=== PATIENT | male | born 1955 | race Caucasian/White ===

== ENCOUNTER → 2017-09-14 12:50 | Outpatient (CLI) | payer BC, SELFPAY ==
[2017-09-14 14:12] LABS: ALB/GLOB Ratio 1.4 RATIO (0.9-2.4); AST(SGOT) 28 U/L (15-37); Alanine Aminotransfer ALT/SGPT 58 U/L (12-78); Albumin, Serum 4.2 g/dL (3.4-5.0); Alkaline Phosphatase 77 U/L (45-117); Anion Gap 7 (5-15); BUN 15 mg/dL (7-18); BUN/Creat Ratio 15.8 RATIO (10-20); Calcium,Total 8.9 mg/dL (8.5-10.1); Chloride 105 mmol/L (98-107); Cholesterol 134 mg/dL (200); Creatinine, Serum 0.95 mg/dL (0.70-1.30); EST Glomerular Filtration Rate 85 mL/min (>60); Est Glom Filt Rate - Afr Amer 103 mL/min (>60); Globulin 3.1 g/dL (2.2-4.2); Glucose 88 mg/dL (70-110); High Density Lipoprotein 34 mg/dL; PSA,Total - Annual Screen 1.57 ng/mL (0.00-4.00); Potassium 4.1 mmol/L (3.5-5.1); Protein, Total 7.3 g/dL (6.4-8.2); Sodium Level 141 mmol/L (136-145); Thyroid Stim Hormone (TSH) 0.75 uIU/mL (0.358-3.74); Triglycerides 191 mg/dL; Very Low Density Lipoprotein 38 mg/dL (5-40)
[2017-09-14 14:13] LABS: Hemoglobin A1c 7.3 % (4.2-6.3)
[2017-09-14 14:15] LABS: T3 Total - Triiodothyronine 1.12 ng/mL (0.6-1.81)
[2017-09-15 13:17] LABS: T4 Free Direct 0.76 ng/dL (0.76-1.46)
== END ==
PROVIDERS: Family Provider Family Medicine; PCP Family Medicine; Visit Provider Family Medicine
DX: E11.9 Type 2 diabetes mellitus without complications (principal); E78.5 Hyperlipidemia, unspecified; E04.9 Nontoxic goiter, unspecified; Z12.5 Encounter for screening for malignant neoplasm of prostate
CPT/HCPCS: 36415; 80053; 80061; 83036; 84153; 84436; 84439; 84443; 84480; G0103

== ENCOUNTER → 2019-09-30 | Outpatient (CLI) | payer BC, SELFPAY ==
[2018-01-20 08:22] VITALS: BMI 37.0
[2019-09-30 12:10] LABS: Absolute Lymphocyte Count 2.31 X10^3/uL (0.83-4.51); Absolute Neutrophil Count 3.1 X10^3/uL (2.0-7.7); Basophil# 0.04 X10^3/uL; Basophil% 0.7 % (0-1); Eosinophil# 0.22 X10^3/uL; Eosinophils% 3.6 % (0-5); Hematocrit 43.9 % (40-54); Hemoglobin 14.1 g/dL (13.0-16.5); Lymphocyte # 2.31 X10^3/ul (4.0); Lymphocyte % 37.6 % (19-41); Mean Corp Hgb Conc 32.1 g/dL (32-36); Mean Corpuscular Hgb 28.3 pg (27.0-32.0); Mean Platelet Vol. 10.2 fl (6.2-12.0); Monocyte# 0.49 X10^3/uL; NRBC Flagged by Analyzer 0 % (0-5); Neutrophil # 3.05 X10^3/uL (2.7-7.7); Neutrophil % 49.4 % (47-70); Platelet Count 224 K/mm3 (150-450); RBC Distribution Width CV 13.3 % (11.6-14.6); RBC Distribution Width SD 43.1 fl (35.1-43.9); Red Blood Count 4.99 M/mm3 (4.6-6.2); White Blood Count 6.2 K/mm3 (4.4-11.0)
[2019-09-30 12:27] LABS: Hemoglobin A1c 7.7 % (4.2-6.3)
[2019-09-30 12:31] LABS: Microalbumin,Random Urine 10.2 mg/L (NO RANGE EST.); Microalbumin:Creatinine Ratio 11.7 mg/g CRE (<30 mg/g CRE)
[2019-09-30 12:32] LABS: ALB/GLOB Ratio 1.2 RATIO (0.9-2.4); AST(SGOT) 24 U/L (15-37); Alanine Aminotransfer ALT/SGPT 49 U/L (16-61); Albumin, Serum 3.9 g/dL (3.2-5.0); Alkaline Phosphatase 69 U/L (45-117); Anion Gap 3 (5-15); BUN 24 mg/dL (7-18); BUN/Creat Ratio 22.6 RATIO (10-20); Calcium,Total 8.7 mg/dL (8.5-10.1); Chloride 105 mmol/L (98-107); Cholesterol 149 mg/dL (200); Creatinine, Serum 1.06 mg/dL (0.70-1.30); EST Glomerular Filtration Rate 75 mL/min (>60); Est Glom Filt Rate - Afr Amer 90 mL/min (>60); Globulin 3.2 g/dL (2.2-4.2); Glucose 116 mg/dL (74-106); High Density Lipoprotein 34 mg/dL; PSA,Total - Annual Screen 2.26 ng/mL (0.00-4.00); Potassium 4.2 mmol/L (3.5-5.1); Protein, Total 7.1 g/dL (6.4-8.2); Sodium Level 138 mmol/L (136-145); Triglycerides 187 mg/dL; Very Low Density Lipoprotein 37 mg/dL (5-40)
== END | disposition home or self-care (01) ==
LOC: LAB 10:49
PROVIDERS: PCP Family Medicine; Referring Provider Family Medicine; Visit Provider Family Medicine
DX: E11.9 Type 2 diabetes mellitus without complications (principal); E78.5 Hyperlipidemia, unspecified; I10 Essential (primary) hypertension; Z12.5 Encounter for screening for malignant neoplasm of prostate
CPT/HCPCS: 36415; 80053; 80061; 82043; 82570; 83036; 84153; 85025; G0103

== ENCOUNTER 2019-10-27 09:05 | Day surgery (SDC) | payer BC, SELFPAY ==
[2019-10-27] VITALS (7 sets, daily range): BP systolic 130–150; BP diastolic 65–91; PULSE 67–74; RESP 16; TEMP 36.4–36.9; O2SAT 93–98; BMI 38.4
[2019-10-27 09:36] LABS: Bedside Glucose 113 mg/dL (70-110)
[2019-10-27] MEDS: Lactated Ringers 1,000 ML 100 ML IV (09:38)
--- NOTE | 2019-10-27 10:23 | H&P.OPEN ---
History of Present Illness Date of Admission: 10/27/19 The patient is a 64 year old M colonoscopy secondary to family history of colon cancer. Past Medical/Surgical History - Planned Operation Planned Operative Procedure/s: cscope open access Date of Operative Procedure: 10/27/19 Permit Signed: No S.O.S: No Is This Patient Having a Total Joint: No - Previous Hospitalizations/Surgeries HX Hospitalizations: No HX of Surgeries: septoplasty. carpal tunnel bilat. trigger finger. knee scope. cscope/egd. umbilical hernia Any Problems With Anesthesia: No You/Your Family Experience Fever (Hyperthermia) With Anes: No Cholinesterase deficiency: No - Cardiovascular Hx Chest Pain within Last 2 months: No Hx of Irregular Heartbeat and/or Afib: No Hx Heart Attack: No Hx Congestive Heart Failure: No Hx Rheumatic Fever: No Hx Hypertension: Yes - controlled with meds Hx Internal Defibrillator: No Hx Pacemaker: No Hx Cardiac Catheterization: Yes - 2002 What facility was last heart cath performed: unsure Date of last Heart Cath: 2002 Hx Cardiac Surgery/Stents/Etc.: No Hx Stress Test: Yes - 2002 HX Edema: No Hx Pain in Legs when Walking/Leg Cramps: Yes - occ knee pain - Respiratory Chronic Cough: No HX of Shortness of Breath: Yes - sob with 2 flights of stairs Hoarseness: No Hx Chronic Obstructive Pulmonary Disease (COPD): No Hx Asthma: No Hx Emphysema: No Hx Sleep Apnea: No Hx Oxygen Use at Home: No Hx Respiratory Tract Infection/Cold (presently): No Do You Snore Loudly (louder than talking or can be heard): Yes Do You Often Feel Tired/ Fatigued/ Sleepy Dring Daytime?: Yes Has Anyone Observed You Stop Breathing During Sleep?: No Result (for STOP score): Positive Hx Smoking: No Smoking Status: Never smoker - Gastrointestinal Hx Gastroesophageal Reflux: Yes Controlled With Meds: Yes Hx Gastrointestinal Disorders: No Hx Gastrointestinal Bleed: No Hx Ulcer: No Hx Hiatal Hernia: Yes Difficulty Chewing/Swallowing: No Recent Onset of Swallowing Problems: No Special diet followed at home: Yes - ada Hx Unplanned Weight Loss of 20#: No HX Unplanned Weight Gain of 20#: No - Neurological Hx Seizures: No HX Syncope/Blackout Spells/Unconsciousness: No Hx CVA/Stroke: No Hx Transient Ischemic Attacks (TIA): No Hx Multiple Sclerosis: No Hx Parkinson's Disease: No Hx Head/Neck Injury: Yes - arthritis cervical/bulging disc c5 Hx Headaches: Yes - occ Hx Back Injury/Pain: No - . Recent Onset of Speech Difficulty: No Restless Legs: Yes - occ Does patient have nerve stimulator: No Patient instructed to have device shut off: No Rep notified?: No - Blood Disorder Hx Leukemia: No Bleeding Tendencies: No Hx Deep Vein Thrombosis: No Hx High Cholesterol: Yes - on med Blood Transmitted Disease: No Hx Hepatitis: No Hx Cirrhosis: No Hx Anemia: No Hx Blood Disorders: No - Genitourinary Hx Renal Disease: No Hx Dialysis: No - Musculoskeletal Hx Arthritis: Yes Hx Rheumatoid Arthritis: No Hx Gout: No Recent Onset of an Orthopedic Problem: No - Endocrine Hx Diabetes: Yes - on med Insulin: No Thyroid Disease: No Hx Steroid Therapy: No - Psycho/Social Hx Substance Use: No Hx Alcohol Use: No Hx Anxiety: Yes - panic attacks in the past Hx Depression: Yes - on med Mental Illness: No Hx Dementia: No - Miscellaneous Hx Cancer: No Recent Exposure to Contagious Disease: No Active MRSA: No Hx of C-Diff: No Any Loose Teeth: No - dentures Allergies No Known Allergies Allergy (Unverified 10/24/19 12:00) - Discharge Is Pt Admitted From a [facility], or a Long Term: No Who Could Help: family After D/C, Where Do you Plan to Go: Return Home - From the PAT History Number of Risk Factors: 5 - Physical Exam Vitals/I&O's: Vital Signs Temp Pulse Resp BP Pulse Ox 97.6 F L 74 16 138/82 H 98 10/27/19 09:31 10/27/19 09:31 10/27/19 09:31 10/27/19 09:31 10/27/19 09:31 Oxygen Delivery Method Room Air Weight: 249 lb 1.957 oz Body Mass Index (BMI) 38.4 General: Alert, Oriented x3 Lungs: Clear to auscultation Cardiovascular: Regular rate, Regular Rhythm, No murmurs Abdomen: Bowel Sounds Present, Soft, Non Tender, Non-Distended Laboratory Results 10/27/19 09:25: POC Glucose 113 H Current Medications Lactated Ringer's () 1,000 mls @ 100 mls/hr IV .Q10H BRANDYN Last Admin: 03/09/20 09:38 Dose: 100 mls/hr Documented by: Assessment/Plan Assessment: Family history of colon cancer Plan: We will be to do a colonoscopy. His last colonoscopy was in 2013. Surgery Risks - Colonoscopy Risks Include but are not Limited To: Risks include but are not limited to: Bleeding, perforation requiring further surgery, inability to complete colonoscopy requiring barium enema.
--- NOTE | 2019-10-27 10:49 | OP.CCLET_ITS ---
10/27/2019 Mary Jo Wilcox [address] [place] [address] Re : Colonoscopy procedure for Wilbur Mandel Dear Dr. Wilcox This procedure was performed on Sunday, October 27, 2019. My impressions and recommendations are as follows: Impressions : - The entire examined colon is normal. No specimens collected. - Non-bleeding internal hemorrhoids. - The examination was otherwise normal. Recommendations : - Discharge patient to home. - Resume previous diet. - Continue present medications. - Repeat colonoscopy in 5 years for surveillance. - Return to primary care physician (date not yet determined). My findings are described in the full procedure note, which is enclosed. If I can be of further assistance, please feel free to contact me at Doctor phone number(s): , Fax: [phone], Work: . Sincerely, MD Bucky Hahn MD 10/27/2019 10:49:05 AM This report has been signed electronically.
--- NOTE | 2019-10-27 10:49 | OP.COLON_ITS ---
Patient Name: Wilbur Mandel Procedure Date: 10/27/2019 10:24 AM Date of : 1955 Age: 64 Procedure: Colonoscopy Indications: Family history of colon cancer in a first-degree relative Providers: Bucky Gonzales MD Referring MD: Mary Jo Wilcox Medicines: See the Anesthesia note for documentation of the administered medications Patient Profile: This is a 64 year old male. Refer to note in patient chart for documentation of history and physical. Last Colonoscopy: October 2013. Complications: No immediate complications. Procedure: Pre-Anesthesia Assessment: - Prior to the procedure, a History and Physical was performed, and patient medications and allergies were reviewed. The patient's tolerance of previous anesthesia was also reviewed. The risks and benefits of the procedure and the sedation options and risks were discussed with the patient. All questions were answered, and informed consent was obtained. Prior Anticoagulants: The patient has taken no previous anticoagulant or antiplatelet agents. ASA Grade Assessment: II - A patient with mild systemic disease. After reviewing the risks and benefits, the patient was deemed in satisfactory condition to undergo the procedure. After I obtained informed consent, the scope was passed under direct vision. Throughout the procedure, the patient's blood pressure, pulse, and oxygen saturations were monitored continuously. The Colonoscope was introduced through the anus and advanced to the cecum, identified by appendiceal orifice and ileocecal valve. The colonoscopy was performed without difficulty. The patient tolerated the procedure well. The quality of the bowel preparation was good. Scope In: 10:35:57 AM Scope Withdrawal Time 0 hours 6 minutes 25 seconds Scope Out: 10:45:15 AM Total Procedure Duration Time 0 hours 9 minutes 18 seconds Findings: The colon (entire examined portion) appeared normal. No biopsies or other specimens were collected for this exam. Non-bleeding internal hemorrhoids were found during retroflexion. The hemorrhoids were mild and small. The exam was otherwise without abnormality. Impression: - The entire examined colon is normal. No specimens collected. - Non-bleeding internal hemorrhoids. - The examination was otherwise normal. Recommendation: - Discharge patient to home. - Resume previous diet. - Continue present medications. - Repeat colonoscopy in 5 years for surveillance. - Return to primary care physician (date not yet determined). Procedure Code(s): --- Professional --- 51631, Colonoscopy, flexible; diagnostic, including collection of specimen(s) by brushing or washing, when performed (separate procedure) Diagnosis Code(s): --- Professional --- K64.8, Other hemorrhoids Z80.0, Family history of malignant neoplasm of digestive organs CPT copyright 2017 [employer]. All rights reserved. The codes documented in this report are preliminary and upon certified medical coder review may be revised to meet current compliance requirements. MD Bucky Hahn MD 10/27/2019 10:49:05 AM This report has been signed electronically. Number of Addenda: 0 Note Initiated On: 10/27/2019 10:24 AM
== END 2019-10-27 12:02 | disposition home or self-care (01) ==
LOC: EN 09:05 → AC 09:08
PROVIDERS: PCP Family Medicine; Referring Provider Family Medicine; Visit Provider Surgery
PROC: 0DJD8ZZ Inspection of Lower Intestinal Tract, Via Natural or Artificial Opening Endoscopic (ICD-10-PCS; CPT 45378; principal; 2019-10-27 10:10)
DX: K64.8 Other hemorrhoids (principal); Z80.0 Family history of malignant neoplasm of digestive organs; K21.9 Gastro-esophageal reflux disease without esophagitis; I10 Essential (primary) hypertension; E78.00 Pure hypercholesterolemia, unspecified; E11.9 Type 2 diabetes mellitus without complications; F32.9 Major depressive disorder, single episode, unspecified; F41.9 Anxiety disorder, unspecified; Z79.84 Long term (current) use of oral hypoglycemic drugs; Z79.899 Other long term (current) drug therapy
CPT/HCPCS: 45378; 82962; J7120; J1610

== ENCOUNTER → 2020-03-23 | Outpatient (CLI) | payer BC, SELFPAY ==
[2019-10-27 09:31] VITALS: BMI 38.4
--- NOTE | 2020-03-23 16:28 | RAD_ITS ---
HISTORY: hit left heel on bed, pain on left heel, swelling ADDITIONAL HISTORY: None provided. EXAMINATION/TECHNIQUE: XR Ankle Min 3 Views Left Number of images including paperwork: 3 COMPARISON: None FINDINGS: BONES: No acute fracture. Enthesopathic changes. JOINTS: No subluxation. SOFT TISSUES: No distinct foreign body. Soft tissue edema. Soft tissue swelling dorsal to the calcaneus. RAD/Ankle min 3 Views IMPRESSION: No acute osseous abnormality. at 2259 Reported and signed by: Diann Pelaez MD Electronically Signed: Diann Pelaez MD at 22:58 EDT Tel , Service support ,
== END | disposition home or self-care (01) ==
PROVIDERS: PCP Family Medicine; Referring Provider Family Medicine; Visit Provider Family Medicine
DX: M79.672 Pain in left foot (principal)
CPT/HCPCS: 73610

== ENCOUNTER → 2020-06-28 17:36 | Outpatient (CLI) | payer MEDICARE, SELFPAY ==
[2019-10-27 09:31] VITALS: BMI 38.4
== END ==
PROVIDERS: PCP Family Medicine; Referring Provider Family Medicine; Visit Provider Family Medicine
DX: Z20.828 Contact with and (suspected) exposure to other viral communicable diseases (principal)
CPT/HCPCS: 87635; C9803; U0003

== ENCOUNTER 2020-10-29 08:00 | Outpatient (RCR) | payer MEDICARE, SELFPAY ==
[2019-10-27 09:31] VITALS: BMI 38.4
[2020-10-29] MEDS: COVID-19 VACC, MRNA(PFIZER)/PF 30 MCG/0.3 ML SYRINGE IM (16:26)
[2020-11-19] MEDS: COVID-19 VACC, MRNA(PFIZER)/PF 30 MCG/0.3 ML SYRINGE IM (16:23)
== END 2021-01-25 23:59 ==
LOC: IMMUN 08:00
PROVIDERS: PCP Family Medicine; Visit Provider Family Medicine
DX: Z23 Encounter for immunization (principal)
CPT/HCPCS: 0001A; 0002A; 91300

== ENCOUNTER → 2021-05-11 | Outpatient (CLI) | payer MEDICARE, BC, SELFPAY | END | disposition home or self-care (01) | LOC: LABSPEC 05-12 07:37 | PROVIDERS: PCP Family Medicine; Visit Provider Family Medicine | DX: Z20.822 Contact with and (suspected) exposure to COVID-19 (principal) | CPT/HCPCS: 87635; U0005; U0003 ==

== ENCOUNTER → 2021-06-22 10:29 | Outpatient (CLI) | payer MEDICARE, SELFPAY ==
--- NOTE | 2021-06-22 10:37 | RAD_ITS ---
STUDY: X-RAY - LUMBAR SPINE REASON FOR EXAM: Male, 66 years old. LOW BACK PAIN TECHNIQUE: 5 view(s) of the lumbar spine were obtained. COMPARISON: None FINDINGS: Normal lumbar lordosis. There is moderate levo scoliosis. There is a normal alignment of the vertebrae. No evidence for acute fracture or subluxation. No lytic or sclerotic bony lesions are evident.. There is narrowing of L4-5 disc space and multilevel endplate spurring. On the lateral view, there is suggestion of spinal stenosis exaggerated by facet arthropathy and shortening of the pedicles. This may be better assessed with CT or MRI The soft tissue structures are unremarkable. RAD/L/S Spine Min 4 Views IMPRESSION: Scoliosis and degenerative changes. No evidence for acute fracture.. Probable spinal stenosis at L4-5 and L5-S1 Electronically Signed: Mook Hammond MD at 17:05 EDT , Service support ,
== END ==
PROVIDERS: PCP Family Medicine; Referring Provider Family Medicine; Visit Provider Family Medicine
DX: M54.32 Sciatica, left side (principal)
CPT/HCPCS: 72110

== ENCOUNTER → 2021-07-01 07:21 | Outpatient (CLI) | payer MEDICARE, BC, SELFPAY ==
--- NOTE | 2021-07-01 07:30 | MRI_ITS ---
STUDY: MRI LUMBAR SPINE WITHOUT CONTRAST REASON FOR EXAM: Male, 66 years old. PAIN, left sciatica TECHNIQUE: Standardized fat and water weighted pulse sequences were obtained in the sagittal and axial planes. COMPARISON: None FINDINGS: T12-L1: Normal endplates. Normal disc height, hydration and morphology. Normal bilateral facet joints. Normal central canal and bilateral lateral recesses. Normal bilateral intervertebral neural foramina. Normal lumbar lordosis. Mild levoscoliosis centered at L3/L4. Normal conus medullaris that terminates at the L1. L1-2: Mild bilobed disc protrusion produces mild spinal stenosis and mild bilateral neural foraminal stenosis. L2-3: Mild bilateral facet hypertrophy and ligament flavum hypertrophy. Moderate broad disc protrusion asymmetric to the right produces moderate spinal stenosis with moderate right lateral recess stenosis with abutment of the right L3 nerve root, mild left lateral recess stenosis and mild bilateral neural foraminal stenosis. L3-4: Mild bilateral facet hypertrophy and ligament flavum hypertrophy. Moderate broad disc protrusion asymmetric to the right produces moderate spinal stenosis with moderate right lateral recess stenosis with abutment of the right L4 nerve root, mild left lateral recess stenosis, moderate right neural foraminal stenosis with abutment of the right L3 nerve root laterally and mild left neural foraminal stenosis. L4-5: Mild bilateral facet hypertrophy and ligament flavum hypertrophy. Moderate broad disc protrusion produces moderate spinal stenosis with moderate bilateral lateral recess stenosis with abutment of the L5 nerve roots bilaterally and mild bilateral neural foraminal stenosis. L5-S1: Mild broad disc protrusion results in mild spinal stenosis and mild bilateral neural foraminal stenosis. Normal visualized sacral ala. Moderate friction related edema in the posterior subcutaneous fat. MRI/Spine Lumbar (Routine) IMPRESSION: Mild levoscoliosis with degenerative disc disease as described above. Electronically Signed: Carlos Moya MD at 13:14 EST Tel , Service support ,
== END ==
PROVIDERS: PCP Family Medicine; Referring Provider Family Medicine; Visit Provider Family Medicine
DX: M48.061 Spinal stenosis, lumbar region without neurogenic claudication (principal); M47.26 Other spondylosis with radiculopathy, lumbar region
CPT/HCPCS: 72148

== ENCOUNTER 2021-08-17 10:00 | Outpatient (RCR) | payer MEDICARE, BC, SELFPAY ==
--- NOTE | 2021-07-06 15:02 | HP.PTEVAL ---
Patient's Visit Information DENISSE BEATTY is a 66 year old M referred to Physical Therapy by Dr. Mary Jo Wilcox DO with a diagnosis of LBP with L radiculopathy. Date of Evaluation: 07/06/21 Physical Therapist: Monty Rebolledo, PT, ATC - Visit Plan Frequency: 2-3x /Week Duration: 4-6 Weeks Plan: SKTC/DKTC, neutral spine stab ex's - Subjective Pt reports he has had LBP with L LE radiculopathy for 5 years. Pt reports it started in 2016 at work and went to PT at that time. Pt reports he has tingling and numbness in L LE all the way down to the toes. 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 Pt notes he has had less pain over the past couple days, which he attibutes to no longer wearing a blet around his waist which increasews pain. Pt reports he has bowel issues as well since the LBP started. Pt reports he has had xrays and an MRI which revealed some OA and bulging of the L4-5 disc. Doctor wants pt to attempt to decrease pain by performing PT as opposed to having surgery at this time. LBP 4/10 while sitting at rest, 10/10 at worst. Pt reports increased pain with prolonged standing and walking at this time. Pt notes sleep difficulty secondary to pain. - Pain LBP, L LE radiculopathy Pain Intensity (Out of 10): 4 Pain Intensity Range: 10 - Objective Neuro: B LE sensation is WNL to light touch. R patellar reflex= 2/3, L= 1/3. MMT: B LE's are grossly 5/5 throughout. ROM: Pt is moderately limited with ext and R SB. all other motions are WFL. Repeated movements: RFIS 10x3 increased LBP, REIL peripheralized sx's. SKTC/DKTC decreased toe symptoms - Balance/Special Test Scores Oswestry Low Back Score: 28 - Goals Goal 1:: Decrease LBP x 50% to aid with sleep Goal Time Frame: 4-6 Weeks Goal 2:: Decrease the frequency and intensity of L LE radiculopathy x 50% to aid with ambulation Goal Time Frame: 4-6 Weeks Goal 3:: I with HEP Goal Time Frame: 4-6 Weeks - Rehabilitation Potential Physical Therapy Diagnosis: Pt has LBP, limited L/S ROM, and L LE radiculopathy secondary to deg changes in L/S Rehabilitation Potential: Good - Anticipated Interventions Patient/Client Instruction: Educate patient on: Condition, Plan of Care For the Purpose of:: To improve self management Therapeutic Exercise to Include: Strength training, Endurance training, Body mechanics, Flexibilty training, Gait and locomotor training, Active ROM, Dynamic Lumbar Stabilization, Mehran Exercises For the Purpose of:: To decrease pain, To increase ROM, To improve muscle performance and motor function Cryotherapy (ice pack, ice massage): Yes Thermo therapy (hot pack): Yes For the Purpose of:: To decrease pain Thank you for the opportunity to evaluate your patient. For Medicare and Medicare HMO plans, please review the plan of care and approve it. It will need to be FAXED BACK to us at [phone] for Medicare purposes. For Medicare only, by signing this I certify the plan of care. Please let me know if there are questions or concerns regarding this plan of care. Physician Signature: Date:
--- NOTE | 2021-08-17 10:41 | HP.PTDCSUM ---
It has been my pleasure to treat DENISSE BEATTY referred by Dr. Mary Jo Wilcox DO, with the diagnosis of LBP with L radiculopathy for a total of 11 visit(s). Discharge Date: Please see the following information for a summary of their discharge status. Subjective: I feel pretty good today. I am ready for discharge LBP, L LE radiculopathy Pain Intensity (Out of 10): 1 % Improvement: 80 Objective/Function: LBP is rated 1/10 today. Pt reports L LE radiculopathy is greater than 50% better. Pt is now I with HEP. Rx goals achieved Goal 1:: Decrease LBP x 50% to aid with sleep Goal Progress: Goal Met Goal 2:: Decrease the frequency and intensity of L LE radiculopathy x 50% to aid with ambulation Goal Progress: Goal Met Goal 3:: I with HEP Goal Progress: Goal Met Plan: Discharge to HEP If there are questions or concerns regarding this patient's physical therapy, please feel free to call me at [phone]. Thank you for the referral of this patient. Sincerely, Monty Rebolledo, PT, ATC Balance/Gait/Functional tests - Balance/Special Test Scores Oswestry Low Back Score: 6
== END 2021-08-17 19:00 | disposition home or self-care (01) ==
LOC: PT 10:00
PROVIDERS: PCP Family Medicine; Referring Provider Family Medicine; Visit Provider Family Medicine
DX: M54.32 Sciatica, left side (principal); M19.90 Unspecified osteoarthritis, unspecified site; M51.36 Other intervertebral disc degeneration, lumbar region; M48.062 Spinal stenosis, lumbar region with neurogenic claudication
CPT/HCPCS: 97110; 97161; 97164

== ENCOUNTER → 2023-03-23 | Outpatient (CLI) | payer MEDICARE, BC, SELFPAY ==
[2023-03-23 09:17] LABS: Absolute Lymphocyte Count 2.24 X10^3/uL (0.83-4.51); Absolute Neutrophil Count 2.6 X10^3/uL (2.0-7.7); Basophil# 0.04 X10^3/uL; Basophil% 0.7 % (0-1); Eosinophil# 0.23 X10^3/uL; Hematocrit 43.8 % (40-54); Hemoglobin 14.1 g/dL (13.0-16.5); Lymphocyte # 2.24 X10^3/ul (0.83-4.51); Lymphocyte % 39.1 % (19-41); Mean Corp Hgb Conc 32.2 g/dL (32-36); Mean Corpuscular Hgb 29.1 pg (27.0-32.0); Mean Corpuscular Volume 90.3 fL (80-94); Mean Platelet Vol. 10.3 fl (6.2-12.0); Monocyte# 0.55 X10^3/uL; Monocyte% 9.6 % (0-10); NRBC Flagged by Analyzer 0 % (0-5); Neutrophil # 2.63 X10^3/uL (2.7-7.7); Neutrophil % 45.9 % (47-70); Platelet Count 219 K/mm3 (150-450); RBC Distribution Width CV 13.3 % (11.6-14.6); RBC Distribution Width SD 43.9 fl (35.1-43.9); Red Blood Count 4.85 M/mm3 (4.6-6.2); White Blood Count 5.7 K/mm3 (4.4-11.0)
[2023-03-23 09:49] LABS: AST(SGOT) 33 U/L (15-37); Alanine Aminotransfer ALT/SGPT 53 U/L (16-61); Albumin, Serum 3.6 g/dL (3.2-5.0); Alkaline Phosphatase 63 U/L (45-117); Anion Gap 5 (5-15); BUN 19 mg/dL (7-18); Calcium,Total 8.8 mg/dL (8.5-10.1); Chloride 108 mmol/L (98-107); Cholesterol 122 mg/dL (200); Creatinine, Serum 1.19 mg/dL (0.70-1.30); EST Glomerular Filtration Rate 65 mL/min (>60); Est Glom Filt Rate - Afr Amer 78 mL/min (>60); Globulin 3.5 g/dL (2.2-4.2); Glucose 147 mg/dL (74-106); High Density Lipoprotein 32 mg/dL; PSA,Total - Annual Screen 2.49 ng/mL (0.00-4.00); Potassium 3.9 mmol/L (3.5-5.1); Protein, Total 7.1 g/dL (6.4-8.2); Sodium Level 140 mmol/L (136-145); Triglycerides 176 mg/dL; Very Low Density Lipoprotein 35 mg/dL (5-40)
[2023-03-23 09:54] LABS: Microalbumin,Random Urine 40.7 mg/L (NO RANGE EST.); Microalbumin:Creatinine Ratio 25.6 mg/g CRE (<30 mg/g CRE)
[2023-03-23 10:14] LABS: Hemoglobin A1c 7.6 % (3.8-5.6)
== END | disposition home or self-care (01) ==
LOC: LAB 08:35
PROVIDERS: PCP Family Medicine; Visit Provider Family Medicine
DX: E11.9 Type 2 diabetes mellitus without complications (principal); I10 Essential (primary) hypertension; E78.5 Hyperlipidemia, unspecified; J30.9 Allergic rhinitis, unspecified; Z51.81 Encounter for therapeutic drug level monitoring; Z12.5 Encounter for screening for malignant neoplasm of prostate
CPT/HCPCS: 36415; 80053; 80061; 82043; 82570; 83036; 84153; 85025; G0103

== ENCOUNTER 2023-11-06 11:01 | Outpatient (RCR) | payer MEDICARE, BC, SELFPAY | END 2023-11-18 23:59 | LOC: NS 11:01 | PROVIDERS: PCP Family Medicine; Referring Provider Family Medicine; Visit Provider Family Medicine | DX: Z71.3 Dietary counseling and surveillance (principal); E11.65 Type 2 diabetes mellitus with hyperglycemia | CPT/HCPCS: 97802 ==

== ENCOUNTER 2023-12-04 14:57 | Outpatient (RCR) | payer MEDICARE, BC, SELFPAY | END 2023-12-18 23:59 | LOC: NS 14:57 | PROVIDERS: PCP Family Medicine; Referring Provider Family Medicine; Visit Provider Family Medicine | DX: Z71.3 Dietary counseling and surveillance (principal); E11.9 Type 2 diabetes mellitus without complications | CPT/HCPCS: 97803 ==

== ENCOUNTER 2024-01-15 14:57 | Outpatient (RCR) | payer MEDICARE, BC, SELFPAY | END 2024-01-18 23:59 | LOC: NS 14:57 | PROVIDERS: PCP Family Medicine; Referring Provider Family Medicine; Visit Provider Family Medicine | DX: Z71.3 Dietary counseling and surveillance (principal); E11.65 Type 2 diabetes mellitus with hyperglycemia | CPT/HCPCS: 97803 ==

== ENCOUNTER 2024-02-11 12:51 | Outpatient (RCR) | payer MEDICARE, BC, SELFPAY | END 2024-02-17 23:59 | LOC: NS 12:51 | PROVIDERS: PCP Family Medicine; Referring Provider Family Medicine; Visit Provider Family Medicine | DX: Z71.3 Dietary counseling and surveillance (principal); E11.65 Type 2 diabetes mellitus with hyperglycemia | CPT/HCPCS: 97803 ==

== ENCOUNTER → 2024-04-02 | Outpatient (CLI) | payer MEDICARE, BC, SELFPAY ==
[2024-04-02 17:38] LABS: Absolute Lymphocyte Count 2.44 X10^3/uL (0.83-4.51); Absolute Neutrophil Count 2.9 X10^3/uL (2.0-7.7); Basophil# 0.03 X10^3/uL; Basophil% 0.5 % (0-1); Eosinophil# 0.16 X10^3/uL; Eosinophils% 2.6 % (0-5); Hematocrit 42.4 % (40-54); Hemoglobin 13.8 g/dL (13.0-16.5); Lymphocyte # 2.44 X10^3/ul (0.83-4.51); Lymphocyte % 39.9 % (19-41); Mean Corp Hgb Conc 32.5 g/dL (32-36); Mean Corpuscular Hgb 28.2 pg (27.0-32.0); Mean Corpuscular Volume 86.7 fL (80-94); Mean Platelet Vol. 10.9 fl (6.2-12.0); Monocyte# 0.52 X10^3/uL; Monocyte% 8.5 % (0-10); NRBC Flagged by Analyzer 0 % (0-5); Neutrophil # 2.94 X10^3/uL (2.7-7.7); Neutrophil % 48.2 % (47-70); Platelet Count 194 K/mm3 (150-450); RBC Distribution Width CV 13.2 % (11.6-14.6); RBC Distribution Width SD 41.2 fl (35.1-43.9); Red Blood Count 4.89 M/mm3 (4.6-6.2); White Blood Count 6.1 K/mm3 (4.4-11.0)
[2024-04-02 17:51] LABS: ALB/GLOB Ratio 1.2 RATIO (0.9-2.4); AST(SGOT) 29 U/L (15-37); Alanine Aminotransfer ALT/SGPT 45 U/L (16-61); Albumin, Serum 3.9 g/dL (3.2-5.0); Alkaline Phosphatase 64 U/L (45-117); Anion Gap 7 (5-15); BUN 14 mg/dL (7-18); BUN/Creat Ratio 11.8 RATIO (10-20); Chloride 106 mmol/L (98-107); Cholesterol 100 mg/dL (200); Creatinine, Serum 1.19 mg/dL (0.70-1.30); EST Glomerular Filtration Rate 64 mL/min (>60); Est Glom Filt Rate - Afr Amer 78 mL/min (>60); Globulin 3.2 g/dL (2.2-4.2); Glucose 94 mg/dL (74-106); High Density Lipoprotein 33 mg/dL; PSA,Total - Annual Screen 2.09 ng/mL (0.00-4.00); Potassium 3.9 mmol/L (3.5-5.1); Protein, Total 7.1 g/dL (6.4-8.2); Sodium Level 138 mmol/L (136-145); Triglycerides 135 mg/dL; Very Low Density Lipoprotein 27 mg/dL (5-40)
[2024-04-02 17:57] LABS: Microalbumin,Random Urine 33.3 mg/L (NO RANGE EST.); Microalbumin:Creatinine Ratio 17.4 mg/g CRE (<30 mg/g CRE)
== END | disposition home or self-care (01) ==
LOC: MTLAB 14:51
PROVIDERS: PCP Family Medicine; Referring Provider Family Medicine; Visit Provider Family Medicine
DX: Z12.5 Encounter for screening for malignant neoplasm of prostate (principal); E11.9 Type 2 diabetes mellitus without complications; I10 Essential (primary) hypertension; Z51.81 Encounter for therapeutic drug level monitoring
CPT/HCPCS: 36415; 80053; 80061; 82043; 82570; 84153; 85025; G0103

== ENCOUNTER 2024-10-20 06:56 | Day surgery (SDC) | payer MEDICARE, BC, SELFPAY ==
[2024-10-20] VITALS (8 sets, daily range): BP systolic 112–175; BP diastolic 86–94; PULSE 96–102; RESP 16–18; TEMP 36.6–37.3; O2SAT 94–98; BMI 37.0
--- NOTE | 2024-10-20 07:04 | PCM.PRE.AN2 ---
ASA Classification* ASA Classification ASA Classification: 2 Assessment & Plan Anesthesia* Anesthesia Assessment Anesthesia Assessment: Discussed sedation and/or anesthesia options, risks, benefits, and alternatives with patient/parents/legal guardian/POA. Questions invited. The patient/parents/legal guardian/POA seems to understand and agrees to proceed with anesthesia plan. Reviewed the physical assessment, medical history, allergy history and patient home medications list prior to surgery/procedure/anesthetic and documented any changes. Performed airway and anesthesia risk assessments. Anesthesia Type Anesthesia Type: MAC Anesthesia Focused Assessment* Airway Assessment Mouth opens: >3 cm Mallampati Score: II Focused Labs Anesthesia Preop lab: CBC WBC 6.1 K/mm3 (4.4-11.0) 04/02/24 14:58 04/02/24 RBC 4.89 M/mm3 (4.6-6.2) 04/02/24 14:58 04/02/24 Hgb 13.8 g/dL (13.0-16.5) 04/02/24 14:58 04/02/24 Hct 42.4 % (40-54) 04/02/24 14:58 04/02/24 Plt Count 194 K/mm3 (150-450) 04/02/24 14:58 04/02/24 CHEMISTRY Potassium 3.9 mmol/L (3.5-5.1) 04/02/24 14:58 04/02/24 Sodium 138 mmol/L (136-145) 04/02/24 14:58 04/02/24 BUN 14 mg/dL (7-18) 04/02/24 14:58 04/02/24 Creatinine 1.19 mg/dL (0.70-1.30) 04/02/24 14:58 04/02/24 Glucose 94 mg/dL (74-106) 04/02/24 14:58 04/02/24 POC Glucose 113 mg/dL (70-110) H 10/27/19 09:25 10/27/19 TSH 0.75 uIU/mL (0.358-3.74) 09/14/17 12:57 09/14/17 COAG Pre-Assessment Diagnosis/Proposed Procedure Planned Operative Procedure(s): COLONOSCOPY Anesthesia History 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 When Was Last Pacemaker Check QUESTION #4 FULL TEXT: You/Your Family Experience fever (hyperthermia) with Anesthesia Last Oral Intake Last Oral intake: Last Oral Intake NPO since Meds taken in AM with sips of water? Meds patient instructed to take am of surgery PONV PONV - life management teacher: PONV - life management teacher Female No 10/16/24 09:21 HX of Motion Sickness No 10/16/24 09:21 HX of N/V After Surgery No 10/16/24 09:21 Non-Smoker Yes 10/16/24 09:21 Duration of Surgery greater No 10/16/24 09:21 than 60 minutes Number of Risk Factors 1 10/16/24 09:21 PONV Score Low Risk 10/16/24 09:21 Height & Weight Height & Weight: Anesthesia: Height & Weight Height 5 ft 7 in 09/15/24 15:04 Respiratory Assessment Respiratory Assessment - life management teacher: Respiratory Tract Infection Hx - life management teacher Hx Respiratory Tract Infection No 10/16/24 09:21 STOP Sleep Apnea STOP Sleep Apnea - life management teacher: STOP Sleep Apnea - life management teacher Hx Hypertension Yes: controlled with meds 10/16/24 09:21 Hx Sleep Apnea No 10/16/24 09:21 CPAP BIPAP Do you snore loudly (louder Yes 10/16/24 09:21 than talking or can be heard Do you often feel tired/ No 10/16/24 09:21 fatigued/ sleepy during daytime? Has anyone observed you stop No 10/16/24 09:21 breathing during sleep? STOP Results Positive 10/16/24 09:21 QUESTION #5 FULL TEXT : Do you snore loudly (louder than talking or can be heard through closed doors)? 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 Specify any problems Hx of Preganancy in last 3 N/A 10/16/24 09:21 Months Nurse Filling Out Transfusion MGRIFFITH 10/16/24 09:21 & Questions: Date: 10/16/24 10/16/24 09:21 Time: 09:10/16/24 09:21 Patient unable to answer at this time (ie. confused, unrespo /Reproduction History /Reproductive History - life management teacher: /Reproductive Hx- life management teacher Hx Now Gestational Age (in weeks): EDC: Hx Hx Para Hx Section [facility] Medical History Wears hearing aid Wears glasses Wears partial dentures Wears dentures ADD (attention deficit disorder) Anxiety Arthritis Migraine headache High cholesterol Difficulty swallowing History of hiatal hernia History of diverticulitis Gastric reflux Non-smoker History of echocardiogram History of stress test Leg cramps Personal history of colonic polyps Family history of malignant neoplasm of colon in first degree relative diagnosed when younger than 60 years of age Back pain Neck pain Limb weakness Knee pain Fatigue Diabetes Hemorrhoids Hypertension Home Medications ?Medication ?Instructions ?Recorded ?Last Taken ?Type aspirin 81 mg tablet,delayed 81 mg PO QDAY 01/20/18 10/15/24 History release (Adult Low Dose Aspirin) citalopram 40 mg tablet 40 mg PO DAILY 90 days ##90 01/20/18 Unknown History lisinopril 20 mg tablet 20 mg PO DAILY 90 days ##90 01/20/18 10/27/19 History 20 MG multivitamin 1 cap PO QDAY 01/20/18 Unknown History simvastatin 40 mg tablet 40 mg PO DAILY 90 days ##90 01/20/18 Unknown History cyanocobalamin (vitamin B-12) 2,000 mcg PO DAILY 10/24/19 Unknown History 2,000 mcg tablet omeprazole 20 mg capsule,delayed 20 mg PO DAILY 10/24/19 10/27/19 History release 20 MG glipizide 10 mg tablet 10 mg PO BID 09/15/24 Unknown History guanfacine 2 mg tablet 1 mg PO BID 09/15/24 Unknown History metformin 500 mg tablet,extended 1,000 mg PO BID 90 days #360 tabs 09/15/24 Unknown History release 24 hr pioglitazone 30 mg tablet 30 mg PO QDAY 09/15/24 Unknown History atomoxetine 40 mg capsule 40 mg PO DAILY 10/16/24 Unknown History Allergy/AdvReac Type Severity Reaction Status Date / Time No Known Allergies Allergy Verified 10/16/24 09:09 Family History Sister Colon cancer, Onset Age: 56 Surgical History History of esophagogastroduodenoscopy (EGD) History of surgery History of carpal tunnel release of both wrists History of umbilical hernia repair History of arthroscopic knee surgery History of sinus surgery Hx of colonoscopy Social History household members: spouse current occupational status: retired Smoking Status: Never smoker substance use type: does not use Review of Systems (Anesthesia) ROS Narrative System reviewed and no additional complaints, except as documented.
--- NOTE | 2024-10-20 08:00 | H&P.OPEN ---
[facility] - General General Date of Service: 10/20/24 HPI Narrative DENISSE BEATTY, is a 69 M who presents for screening colonoscopy due to history of colon polyps. Patient last colonoscopy was 10/[address] Gonzales no polyps were found at that time recommend follow-up in 5 years. Patient's sister from colon cancer at age 56. Patient denies any abdominal pain/nausea/vomiting/reflux. Patient has bowel movements daily denies any blood. [facility] Medical History (Updated 10/20/24 @ 08:[address] Wen Alexander MD) Wears hearing aid Wears glasses Wears partial dentures Wears dentures ADD (attention deficit disorder) Anxiety Arthritis Migraine headache High cholesterol Difficulty swallowing History of hiatal hernia History of diverticulitis Gastric reflux Non-smoker History of echocardiogram History of stress test Leg cramps Personal history of colonic polyps Family history of malignant neoplasm of colon in first degree relative diagnosed when younger than 60 years of age Back pain Neck pain Limb weakness Knee pain Fatigue Diabetes Hemorrhoids Hypertension Home Medications ?Medication ?Instructions ?Recorded ?Last Taken ?Type aspirin 81 mg tablet,delayed 81 mg PO QDAY 01/20/18 10/15/24 History release (Adult Low Dose Aspirin) citalopram 40 mg tablet 40 mg PO DAILY 90 days ##90 01/20/18 Unknown History lisinopril 20 mg tablet 20 mg PO DAILY 90 days ##90 01/20/18 10/27/19 History 20 MG multivitamin 1 cap PO QDAY 01/20/18 Unknown History simvastatin 40 mg tablet 40 mg PO DAILY 90 days ##90 01/20/18 Unknown History cyanocobalamin (vitamin B-12) 2,000 mcg PO DAILY 10/24/19 Unknown History 2,000 mcg tablet omeprazole 20 mg capsule,delayed 20 mg PO DAILY 10/24/19 10/20/24 History release glipizide 10 mg tablet 10 mg PO BID 09/15/24 Unknown History guanfacine 2 mg tablet 1 mg PO BID 09/15/24 Unknown History metformin 500 mg tablet,extended 1,000 mg PO BID 90 days #360 tabs 09/15/24 Unknown History release 24 hr pioglitazone 30 mg tablet 30 mg PO QDAY 09/15/24 Unknown History atomoxetine 40 mg capsule 40 mg PO DAILY 10/16/24 Unknown History Allergy/AdvReac Type Severity Reaction Status Date / Time No Known Allergies Allergy Verified 10/20/24 07:21 Family History Sister Colon cancer, Onset Age: 56 Surgical History History of esophagogastroduodenoscopy (EGD) History of surgery History of carpal tunnel release of both wrists History of umbilical hernia repair History of arthroscopic knee surgery History of sinus surgery Hx of colonoscopy Social History household members: spouse current occupational status: retired Smoking Status: Never smoker substance use type: does not use Past Medical/Surgical History Planned Operation Planned Operative Procedure(s): COLONOSCOPY S.O.S: No Previous Hospitalizations/Surgeries HX Hospitalizations: No HX of Surgeries: septoplasty carpal tunnel bilat trigger finger knee scope cscope/egd umbilical hernia Any Problems With Anesthesia: No You/Your Family Experience Fever (Hyperthermia) With Anes: No Cholinesterase deficiency: No Cardiovascular Hx Chest Pain within Last 2 months: No Hx of Irregular Heartbeat and/or Afib: No Hx Heart Attack: No Hx Congestive Heart Failure: No Hx Rheumatic Fever: No Hx Hypertension: Yes (controlled with meds) Hx Internal Defibrillator: No Hx Pacemaker: No Hx Cardiac Catheterization: Yes (2002) Hx Cardiac Surgery/Stents/Etc.: No Hx Stress Test: Yes (2002) Hx Pain in Legs when Walking/Leg Cramps: Yes (occ knee pain) Respiratory Chronic Cough: No HX of Shortness of Breath: Yes (sob with 2 flights of stairs) Hoarseness: No Hx Chronic Obstructive Pulmonary Disease (COPD): No Hx Asthma: No Hx Emphysema: No Hx Sleep Apnea: No Hx Respiratory Tract Infection/Cold (presently): No Do You Snore Loudly (louder than talking or can be heard): Yes Do You Often Feel Tired/ Fatigued/ Sleepy Dring Daytime?: No Has Anyone Observed You Stop Breathing During Sleep?: No Result (for STOP score): Positive Hx Smoking: No Smoking Status: Never smoker Gastrointestinal Controlled With Meds: Yes Hx Gastrointestinal Disorders: No Hx Gastrointestinal Bleed: No Hx Ulcer: No Hx Hiatal Hernia: Yes Difficulty Chewing/Swallowing: No Special diet followed at home: Yes (ada) Hx Unplanned Weight Loss of 20#: No HX Unplanned Weight Gain of 20#: No Neurological Hx Seizures: No HX Syncope/Blackout Spells/Unconsciousness: No Hx Transient Ischemic Attacks (TIA): No Hx Multiple Sclerosis: No Hx Parkinson's Disease: No Hx Head/Neck Injury: Yes (arthritis cervical/bulging disc c5) Hx Headaches: Yes (occ) Hx Back Injury/Pain: No (.) Recent Onset of Speech Difficulty: No Restless Legs: Yes (occ) Does patient have nerve stimulator: No Blood Disorder Hx Leukemia: No Bleeding Tendencies: No Hx Deep Vein Thrombosis: No Hx High Cholesterol: Yes (on med) Blood Transmitted Disease: No Hx Hepatitis: No Hx Cirrhosis: No Hx Anemia: No Hx Blood Disorders: No Genitourinary Hx Renal Disease: No Hx Dialysis: No Musculoskeletal Hx Arthritis: Yes Hx Rheumatoid Arthritis: No Hx Gout: No Recent Onset of an Orthopedic Problem: No Endocrine Hx Diabetes: Yes (on med) Insulin: No Thyroid Disease: No Hx Steroid Therapy: No Psycho/Social Hx Substance Use: No Hx Alcohol Use: No Hx Anxiety: Yes (panic attacks in the past) Hx Depression: Yes (on med) Mental Illness: No Hx Dementia: No Miscellaneous Hx Cancer: No Recent Exposure to Contagious Disease: No Hx of C-Diff: No Any Loose Teeth: No (dentures) Allergies No Known Allergies Allergy (Verified 10/20/24 07:21) Discharge Is Pt Admitted From a Senior Care, or a Assisted: No Who Could Help: family After D/C, Where Do you Plan to Go: Return Home From the [facility] History Number of Risk Factors: 5 Vital Signs Vital Signs Vital Signs: 10/20/24 07:22 10/20/24 07:22 Temperature 98 F Temperature Source Temporal Pulse Rate 99 Respiratory Rate 18 Respiratory Pattern Normal Blood Pressure 175/93 H Blood Pressure Mean 120 Blood Pressure Source Monitor Blood Pressure Position Semi-Fowlers Blood Pressure Location Right Arm Pulse Ox 98 Oxygen Delivery Method Room Air Weight Weight: 236 lb 12.423 oz Body Mass Index (BMI) 37.0 Physical Exam Const alert, oriented x3 and no apparent distress HEENT normocephalic and head/scalp atraumatic Resp normal respiratory effort Cardio regular rate GI soft to palpation and non-tender; Negative for non-distended Palpation: Negative for guarding Extremity no clubbing, cyanosis or edema Skin no rashes or lesions noted Neuro CN's II-XII intact bilaterally Psych mental status grossly normal Assessment & Plan Assessment/Plan (1) Family history of colon cancer: Surgery Risks - Colonoscopy I discussed with the patient the risks of the procedure: Yes Risks Include but are not Limited To: Risks include but are not limited to: Bleeding, perforation requiring further surgery, inability to complete colonoscopy requiring barium enema.
--- NOTE | 2024-10-20 08:37 | OP.COLON_ITS ---
Patient Name: Wilbur Mandel Procedure Date: 10/20/2024 7:53 AM Date of : 1955 Age: 69 Procedure: Colonoscopy Indications: Screening in patient at increased risk: Family history of 1st-degree relative with colorectal cancer before age 60 years Providers: Wen Alexander MD Referring MD: Mary Jo Wilcox Medicines: Monitored Anesthesia Care Patient Profile: This is a 69 year old male. Last Colonoscopy: October 2019. Complications: No immediate complications. Procedure: Pre-Anesthesia Assessment: - Prior to the procedure, a History and Physical was performed, and patient medications and allergies were reviewed. The patient's tolerance of previous anesthesia was also reviewed. The risks and benefits of the procedure and the sedation options and risks were discussed with the patient. All questions were answered, and informed consent was obtained. Prior Anticoagulants: The patient has taken no anticoagulant or antiplatelet agents. ASA Grade Assessment: Per anesthesia. After reviewing the risks and benefits, the patient was deemed in satisfactory condition to undergo the procedure. After I obtained informed consent, the scope was passed under direct vision. Throughout the procedure, the patient's blood pressure, pulse, and oxygen saturations were monitored continuously. The Colonoscope was introduced through the anus and advanced to the cecum, identified by appendiceal orifice and ileocecal valve. The colonoscopy was performed without difficulty. The patient tolerated the procedure well. The quality of the bowel preparation was good. Scope In: 8:13:31 AM Scope Withdrawal Time 0 hours 11 minutes 34 seconds Scope Out: 8:29:32 AM Total Procedure Duration Time 0 hours 16 minutes 1 second Findings: The perianal and digital rectal examinations were normal. The entire examined colon appeared normal on direct and retroflexion views. Impression: - The entire examined colon is normal on direct and retroflexion views. - No specimens collected. Recommendation: - Discharge patient to home. - Resume previous diet. - Continue present medications. - Repeat colonoscopy in 5 years for surveillance. Procedure Code(s): --- Professional --- G0105, PT, Colorectal cancer screening; colonoscopy on individual at high risk Diagnosis Code(s): --- Professional --- Z80.0, Family history of malignant neoplasm of digestive organs CPT copyright 2021 [employer]. All rights reserved. The codes documented in this report are preliminary and upon adult probation officer review may be revised to meet current compliance requirements. MD Wen Mccoy MD 10/20/2024 8:37:05 AM This report has been signed electronically. Number of Addenda: 0 Note Initiated On: 10/20/2024 7:53 AM
--- NOTE | 2024-10-20 08:37 | PCM.POST.ANE ---
Anesthesia: Postop Eval I Current Vital Signs Temperature: 98.2 F Pulse Rate: 101 Blood Pressure: 116/94 Respiratory Rate: 16 Pulse Ox: 94 Oxygen Delivery Method: Room Air Assessment Airway patent: Yes Spontaneous unlabored respirations: Yes Mental status: Asleep nausea: No Vomiting: No Anesthesia Complication: No Fluid Hydration Crystalloid volume administer (ml): 55 Total IV fluid infused: 55 Progress Note Anesthesia document: Postop Eval 1 completed: Yes
--- NOTE | 2024-10-20 08:38 | OP.CCLET_ITS ---
10/20/2024 Mary Jo Wilcox [address] [place] [address] Re : Colonoscopy procedure for Wilbur Mandel Dear Dr. Wilcox This procedure was performed on Sunday, October 20, 2024. My impressions and recommendations are as follows: Impressions : - The entire examined colon is normal on direct and retroflexion views. - No specimens collected. Recommendations : - Discharge patient to home. - Resume previous diet. - Continue present medications. - Repeat colonoscopy in 5 years for surveillance. My findings are described in the full procedure note, which is enclosed. If I can be of further assistance, please feel free to contact me at Doctor phone number(s): , Work: . Sincerely, MD Wen Mccoy MD 10/20/2024 8:37:05 AM This report has been signed electronically.
[2024-10-20 09:06] LABS: Bedside Glucose 189 mg/dL (74-106)
--- NOTE | 2024-10-20 10:40 | PCM.POSTANE2 ---
Anesthesia Postop Eval I Sum Postop Eval Completion status Anesthesia document: Postop Eval 1 completed: Yes Anesthesia Postop Eval I Summary Anesthesia Postop Eval I Summary: Anesthesia Postop Eval I: Assessment Summary Airway patent Yes 10/20/24 08:38 [email or web address] Spontaneous unlabored Yes 10/20/24 08:38 [email or web address] respirations Mental status Asleep 10/20/24 08:38 [email or web address] nausea No 10/20/24 08:38 [email or web address] Vomiting No 10/20/24 08:38 [email or web address] Anesthesia Postop Eval I: Fluid Summary Crystalloid volume administer 55 10/20/24 08:38 [email or web address] (ml) Colloids volume administered ( ml) Blood Product volume administered (ml) Total IV fluid infused 55 10/20/24 08:38 [email or web address] Anesthesia Postop Eval I: Summary Notes Anesthesia Complication No 10/20/24 08:38 [email or web address] Anesthesia Complication Comment: Post-operative progress note Anesthesia: Postop Eval II Evaluation Mental status: Awake Pain Level: 0 nausea: No Vomiting: No
== END 2024-10-20 09:28 | disposition home or self-care (01) ==
LOC: EN 06:57 → AC 06:58
PROVIDERS: PCP Family Medicine; Referring Provider Family Medicine; Visit Provider Surgery
PROC: 0DJD8ZZ Inspection of Lower Intestinal Tract, Via Natural or Artificial Opening Endoscopic (ICD-10-PCS; CPT 45378; principal; 2024-10-20 08:10)
DX: Z12.11 Encounter for screening for malignant neoplasm of colon (principal); E11.9 Type 2 diabetes mellitus without complications; K21.9 Gastro-esophageal reflux disease without esophagitis; E78.00 Pure hypercholesterolemia, unspecified; I10 Essential (primary) hypertension; Z86.0100 Personal history of colon polyps, unspecified; Z79.899 Other long term (current) drug therapy; Z80.0 Family history of malignant neoplasm of digestive organs; Z79.82 Long term (current) use of aspirin
CPT/HCPCS: G0105; 82962; A4216; J2405

== ENCOUNTER → 2025-04-13 | Outpatient (CLI) | payer MEDICARE, BC, SELFPAY ==
[2025-04-13 11:49] LABS: Mucous, Urine 0 SEEN /hpf (<or=2+)
[2025-04-13 16:11] LABS: Color, Urine Yellow (Yellow); Glucose, Dipstick Normal (Normal); Ketone-Dipstick Negative (Negative); Leukocyte Esterase-Dipstick 25 /ul (Negative); Nitrite-Dipstick Negative (Negative); Occult Blood-Urine 10 /ul (Negative); Protein-Dipstick 30 mg/dl (Negative); Specific Gravity, Urine 1.015 (1.002-1.030); Urine Bilirubin Dipstick Negative (Negative)
[2025-04-13 16:13] LABS: AST(SGOT) 31 U/L (<=37); Alanine Aminotransfer ALT/SGPT 46 U/L (<=46); Albumin, Serum 4.4 g/dL (3.4-4.8); Alkaline Phosphatase 58 U/L (40-129); Anion Gap 15 (5-15); BUN 17 mg/dL (4-19); BUN/Creat Ratio 16.3 RATIO (10-20); Calcium,Total 9.9 mg/dL (7.6-11.0); Carbon Dioxide 23.4 mmol/L (21.0-32.0); Chloride 104 mmol/L (98-108); Globulin 2.6 g/dL (2.2-4.2); Glucose 125 mg/dL (70-99); Potassium 4.2 mmol/L (3.3-5.1)
[2025-04-13 19:04] LABS: Red Blood Cells-Urine 0-5 SEEN /hpf (0-5); Squamous Epithelial Cells - UA 0-5 SEEN /hpf (0-5)
== END | disposition home or self-care (01) ==
LOC: BFHLAB 11:46
PROVIDERS: PCP Family Medicine; Visit Provider Family Medicine
DX: R10.9 Unspecified abdominal pain (principal); R30.0 Dysuria
CPT/HCPCS: 36415; 80053; 81001

== ENCOUNTER → 2025-04-16 | Outpatient (CLI) | payer MEDICARE, BC, SELFPAY ==
--- NOTE | 2025-04-16 13:07 | RAD_ITS ---
EXAM: XR Thoracic Spine, 3 Views CLINICAL INDICATION: RIGHT SIDE PAIN RIGHT BACK PAIN LEFT LEG PAIN TECHNIQUE: Frontal, lateral and swimmer's views of the thoracic spine. COMPARISON: No relevant prior studies available. FINDINGS: VERTEBRAE: Degenerative disc disease and facet arthropathy throughout the thoracic spine. Normal alignment. No acute fracture. DISC SPACES: See above. SOFT TISSUES: Unremarkable. RAD/Thoracic Spine 3 Views IMPRESSION: 1. No acute fracture. 2. Degenerative changes thoracic spine as described. 3. If symptoms persist, further evaluation with MRI is recommended. Reading [facility]
--- NOTE | 2025-04-16 13:07 | RAD_ITS ---
EXAM: XR Lumbosacral Spine, 4 or 5 Views CLINICAL INDICATION: RIGHT SIDE PAIN RIGHT BACK PAIN LEFT LEG PAIN TECHNIQUE: Frontal, lateral and bilateral oblique views of the lumbar spine. COMPARISON: No relevant prior studies available. FINDINGS: VERTEBRAE: Degenerative facet arthropathy throughout the lumbar spine, most prominent in the lower lumbar spine. Moderate facet arthropathy of L3-S1. No acute fracture. Normal alignment. SACRUM/COCCYX: Unremarkable as visualized. No acute fracture. DISC SPACES: Degenerative disc disease throughout the lumbar spine. SOFT TISSUES: Unremarkable. GASTROINTESTINAL TRACT: Fecal retention in the colon consistent with constipation. RAD/L/S Spine Min 4 Views IMPRESSION: 1. Fecal retention in the colon consistent with constipation. 2. If symptoms persist, further evaluation with MRI is recommended. 3. Degenerative changes lumbar spine as described. Reading [facility]
== END | disposition home or self-care (01) ==
LOC: MTRAD 13:05
PROVIDERS: PCP Family Medicine; Referring Provider Family Medicine; Visit Provider Family Medicine
DX: R10.9 Unspecified abdominal pain (principal); M54.50 Low back pain, unspecified; M79.605 Pain in left leg
CPT/HCPCS: 72072; 72110

== ENCOUNTER 2025-04-20 07:42 | Emergency (ER) | payer MEDICARE, BC, SELFPAY ==
[2025-04-20 07:43] VITALS: BP 198/114; PULSE 118; RESP 22; TEMP 36.8; O2SAT 98; BMI 39.2
[2025-04-20 07:46] VITALS: BP 201/105; PULSE 105; RESP 18; TEMP 37.2; O2SAT 98
--- NOTE | 2025-04-20 07:50 | EX.ED.DYSGE1 ---
HPI History of Present Illness Chief Complaint: Edema Informant: patient Onset/Context/Timing Onset: Days Context: Gradual Onset Timing: Continuous Quality: Aching, sharp Location: Left jaw and neck Worsened by: Swallowing, talking Relieved by: Nothing Narrative Narrative: Patient presents with swelling of his jaw and neck that has been getting worse over the past few days. Patient was seen at urgent care yesterday and was prescribed Augmentin and prednisone. Patient states the swelling is worse today. Patient describes his pain as sharp and aching. Patient states it is worse with swallowing and talking. Patient states nothing makes it better. Patient denies any fevers or chills. [facility] Medical History Wears hearing aid Wears glasses Wears partial dentures Wears dentures ADD (attention deficit disorder) Anxiety Arthritis Migraine headache High cholesterol Difficulty swallowing History of hiatal hernia History of diverticulitis Gastric reflux Non-smoker History of echocardiogram History of stress test Leg cramps Personal history of colonic polyps Family history of malignant neoplasm of colon in first degree relative diagnosed when younger than 60 years of age Back pain Neck pain Limb weakness Knee pain Fatigue Diabetes Hemorrhoids Hypertension Home Medications ?Medication ?Instructions ?Recorded ?Last Taken ?Type aspirin 81 mg tablet,delayed 81 mg PO QDAY 01/20/18 04/20/25 History release (Adult Low Dose Aspirin) lisinopril 20 mg tablet 20 mg PO DAILY 90 days ##90 01/20/18 04/20/25 History multivitamin 1 cap PO QDAY 01/20/18 04/19/25 History simvastatin 40 mg tablet 40 mg PO DAILY 90 days ##90 01/20/18 04/19/25 History omeprazole 20 mg capsule,delayed 20 mg PO DAILY 10/24/19 04/20/25 History release metformin 500 mg tablet,extended 1,000 mg PO BID 90 days #360 tabs 09/15/24 04/20/25 History release 24 hr pioglitazone 30 mg tablet 30 mg PO QDAY 09/15/24 04/20/25 History amoxicillin 500 mg capsule 500 mg PO BID 04/20/25 04/19/25 History glipizide 10 mg tablet, extended 10 mg PO BID 04/20/25 04/20/25 History release 24 hr hydrocodone-acetaminophen 5-325mg 1 tab PO Q6H PRN PRN Pain 3 days 04/20/25 Unknown Rx 5mg-325mg #10 TABLETS meloxicam 15 mg tablet 15 mg PO DAILY 04/20/25 04/19/25 History methylphenidate HCl 20 mg tablet 20 mg PO DAILY 04/20/25 04/20/25 History prednisone 5 mg tablet 5 mg PO DAILY 04/20/25 04/19/25 History Allergy/AdvReac Type Severity Reaction Status Date / Time No Known Allergies Allergy Verified 04/20/25 07:43 Family History Sister Colon cancer, Onset Age: 56 Surgical History History of esophagogastroduodenoscopy (EGD) History of surgery History of carpal tunnel release of both wrists History of umbilical hernia repair History of arthroscopic knee surgery History of sinus surgery Hx of colonoscopy Social History household members: spouse current occupational status: retired Smoking Status: Never smoker substance use type: does not use ROS ROS ED Constitutional Constitutional ED: Denies chills or fever(s) Eyes Eyes: Denies blurry vision or change in vision ENT ENT ED: Reports sore throat; Denies rhinorrhea Cardiovascular Cardiovascular: Denies chest pain or palpitations Respiratory/Chest Respiratory/Chest: Denies cough or dyspnea Gastrointestinal Gastrointestinal: Denies nausea or vomiting Genitourinary Genitourinary ED: Reports urinary frequency; Denies dysuria or hematuria Musculoskeletal Musculoskeletal: Reports back pain and neck pain Integumentary Denies abscess or rash Neurologic Neurologic: Reports headache(s); Denies weakness Allergic/Immunologic Allergic/Immunologic ED: Denies mouth swelling or urticaria EXAM Physical Exam Const Vital Signs: 04/20/25 07:43 04/20/25 07:43 04/20/25 07:46 Temperature 98.3 F 98.9 F Temperature Source Temporal Oral Pulse Rate 118 H 105 H Respiratory Rate 22 H 18 Respiratory Effort Normal Respiratory Pattern Normal Blood Pressure 198/114 H 201/105 H Blood Pressure Mean 142 137 Pulse Ox 98 98 Oxygen Delivery Method Room Air Room Air 04/20/25 08:46 04/20/25 10:00 Temperature 98.9 F 98.9 F Temperature Source Oral Oral Pulse Rate 105 H 105 H Respiratory Rate 18 18 Respiratory Effort Respiratory Pattern Blood Pressure 204/104 H 168/72 H Blood Pressure Mean 137 104 Pulse Ox 95 95 Oxygen Delivery Method Room Air Room Air Positive well nourished and well developed Constitutional Narrative: BMI is 39.2. General Appearance ED: well developed and NAD HEENT Reports moist mucous membranes HEENT Narrative: Oropharynx is clear. Airway is patent. There are no exudates noted. There is mild tenderness over the left lower second molar. There is some mild gingival edema. There is some mild trismus noted. Neck supple and no JVD Neck Narrative: There is tenderness over the left anterior neck and submandibular area. There are some mild edema. There is no erythema. Resp normal respiratory effort and clear to auscultation bilaterally Cardio regular rate and regular rhythm GI non-tender and non-distended Palpation: soft Neuro oriented x3, CN's II-XII intact bilaterally and no sensory deficits noted Sensorium / Orientation: alert Motor Exam: strength 5/5 throughout Psych mental status grossly normal MDM MDM MDM Narrative Medical decision making narrative: Differential diagnosis includes parapharyngeal abscess, Avery's angina, pharyngitis, and viral illness. CBC will be obtained to assess for leukocytosis and anemia. Basic metabolic profile will be obtained to assess for electrolyte abnormality renal function. CT scan of the soft tissue neck will be obtained to assess for parapharyngeal abscess and Avery's angina. History & Record Review Additional record(s) reviewed:: Prior outpatient record and Prior labs Lab Data Attestation: I reviewed the patient's lab results. Lab results narrative: CBC was reviewed. There is a mild leukocytosis of 13.3. The remainder is within normal limits. Basic metabolic profile was reviewed. Glucose was mildly elevated at 210. The remainder is within normal limits. Rapid strep was reviewed and was negative. Labs: Laboratory Results - last 24 hr 04/20/25 07:56 WBC 13.3 H RBC 5.19 Hgb 15.0 Hct 45.4 MCV 87.5 MCH 28.9 MCHC 33.0 RDW Std Deviation 42.3 RDW Coeff of [place] 13.2 Plt Count 256 MPV 10.2 Immature Gran % (Auto) 0.800 Neut % (Auto) 74.1 H Lymph % (Auto) 14.2 L [place] % (Auto) 10.1 H Eos % (Auto) 0.5 Baso % (Auto) 0.3 Absolute Neuts (auto) 9.8 H Absolute Lymphs (auto) 1.88 Nucleated RBC % 0 Sodium 140 Potassium 4.2 Chloride 100 Carbon Dioxide 24.3 Anion Gap 15 BUN 15 Creatinine 1.02 Estim Creat Clear Calc 81.05 Est GFR (MDRD) Non-Af 79 BUN/Creatinine Ratio 14.2 Glucose 210 H Calcium 9.8 Radiography Diagnostic Testing: Clinical Impression(s) from Imaging Studies Soft Tissue Neck CT 04/20/25 08:02 IMPRESSION: Stone in the sublingual duct on the left with surrounding inflammation but no phlegmon or abscess. Secondary inflammation of the submandibular gland on the left Reading Location: [id number] CT scan of the soft tissue neck was obtained. There is a stone in the sublingual duct on the left. It measures 9 mm x 6 mm. There is surrounding inflammation but no phlegmon or abscess. There is also inflammation of the submandibular gland on the left. This was interpreted by the radiologist and was also independently reviewed by myself. Treatment and Re-Evaluation :: Patient was given IV fluids and Unasyn. Patient was given a dose of labetalol for his blood pressure. Patient's blood pressure improved to 168/72. Patient was advised of his findings. Patient was given a prescription for a short course of [place] to take for pain. Patient was also instructed to continue his meloxicam, prednisone, and Augmentin. Patient was instructed to eat sour candies. Patient was given a referral for ENT. Patient was instructed to return if worse in any way. Patient understood and was agreeable with the plan. All questions were answered. Discharge Plan Triage Chief Complaint: Edema ED Provider: Benjie Washington Dx/Rx/DC Orders Clinical Impression: Sublingual sialolithiasis, Hypertension, Diabetes mellitus Instructions: ED Salivary Gland Stones Prescriptions: New hydrocodone-acetaminophen 5-325 mg tablet 1 tab PO Q6H PRN PRN (Reason: Pain) 3 Days Qty: 10 0RF No Action lisinopril 20 mg tablet 20 mg PO DAILY 90 Days Qty: 90 Patient Comments: TAKE ONE TABLET BY MOUTH EVERY DAY simvastatin 40 mg tablet 40 mg PO DAILY 90 Days Qty: 90 Patient Comments: TAKE ONE TABLET BY MOUTH EVERY DAY aspirin [Adult Low Dose Aspirin] 81 mg tablet,delayed release (DR/EC) 81 mg PO QDAY multivitamin capsule 1 cap PO QDAY metformin 500 mg tablet extended release 24 hr 1,000 mg PO BID 90 Days Qty: 360 Patient Comments: TAKE ONE TABLET BY MOUTH TWICE DAILY pioglitazone 30 mg tablet 30 mg PO QDAY omeprazole 20 MG capsule 20 mg PO DAILY methylphenidate HCl 20 mg tablet 20 mg PO DAILY glipizide 10 mg tablet extended release 24hr 10 mg PO BID meloxicam 15 mg tablet 15 mg PO DAILY prednisone 5 mg tablet 5 mg PO DAILY Rx Instructions: not sure of strength amoxicillin 500 mg capsule 500 mg PO BID Primary Care Provider: Mary Jo Wilcox Referrals: Adrian Rich MD [Med Staff - Active Staff] - As soon as possible Mary Jo Wilcox DO [Primary Care Provider] - 3-5 Days Activity Restrictions/Additional Instructions: Your CAT scan showed a stone in your sublingual salivary gland. This was 9.6 mm x 6.3 mm by 4.9 mm. Use warm compresses to your neck. Eat sour candies to help with salivation. Call the ENT office tomorrow to schedule an appointment this week. Print Language: Pashto Disposition Disposition: Home, Self Care
--- NOTE | 2025-04-20 08:02 | CT_ITS ---
PROCEDURE: SOFT TISSUE NECK WITH CONTRAST 04/20/2025 REASON FOR EXAM: EDEMA TECHNIQUE: Procedure Code: CTNEW Modality: CT Procedure: SOFT TISSUE NECK WITH CONTRAST CONTRAST: Isovue 370 VOLUME: 99 mL One or more dose reduction techniques were used (e.g., Automated exposure control, adjustment of the mA and/or kV according to patient size, use of iterative reconstruction technique). RADIATION DOSE SUMMARY: CTDlvol: 18 mGy DLP: 634 mGycm COMPARISON: None FINDINGS: Airway: Patent Salivary glands: In the sublingual space at the level of the left sublingual duct, there is a sialolith measuring 9.6 x 6.3 x 4.9 mm. This is associated with inflammation, edema of the surrounding soft tissues in the left. No phlegmon or abscess. Secondary inflammatory change of the adjacent left submandibular gland. Very mild mass effect on the left oropharynx and hypopharynx. The parotid glands are unremarkable. The right submandibular gland is unremarkable. Lymph nodes: None appear enlarged. Thyroid: Normal Vasculature: Left vertebral artery originates from the aortic arch. The vertebral arteries, common carotid arteries, internal carotid arteries are patent. Proximal anterior cerebral arteries, middle cerebral arteries, posterior cerebral arteries are patent. Right origin [employer]. Basilar artery is unremarkable. Orbits: Unremarkable Paranasal sinuses and mastoids: Clear Lung apices: Clear Upper mediastinum: Unremarkable except for some atherosclerosis of the aortic arch. Bones: Multilevel degenerative changes of the spine. CT/Soft Tissue Neck WITH Contrast IMPRESSION: Stone in the sublingual duct on the left with surrounding inflammation but no p hlegmon or abscess. Secondary inflammation of the submandibular gland on the left Reading Location: [id number]
[2025-04-20] MEDS: 0.9% Normal Saline (1000mL) 1,000 ML 1000 ML IV (08:14)
[2025-04-20] MEDS: Ampicillin/Sulbactam 3 GM in 0.9% Normal Saline (100mL MB+) 100 ML IV (08:19)
[2025-04-20 08:28] LABS: Hematocrit 45.4 % (40-54); Hemoglobin 15.0 g/dL (13.0-16.5); Immature Granulocytes Count 0.100 X10^3/uL (0.0-0.0); Mean Corp Hgb Conc 33.0 g/dL (32-36); Mean Corpuscular Volume 87.5 fL (80-94); Mean Platelet Vol. 10.2 fl (6.2-12.0); NRBC Flagged by Analyzer 0 % (0-5); Platelet Count 256 K/mm3 (150-450); RBC Distribution Width CV 13.2 % (11.6-14.6); RBC Distribution Width SD 42.3 fl (35.1-43.9); Red Blood Count 5.19 M/mm3 (4.6-6.2); White Blood Count 13.3 K/mm3 (4.4-11.0)
--- OUTSIDE RECORDS SUMMARY | 2025-04-20 08:29 | XMS RPT_ITS | CCD ---
Author Organization [facility] Care Team Providers Care Events Specialist Name Role Phone Brenden TENORIO, Dr. Camargo Primary Care Provider Brenden TENORIO, Dr. Camargo Attending Provider [phone] Brenden TENORIO, Dr. Camargo Referring Provider [phone] Maxx BIO MEDICAL TECHNICIAN-CDuglas Attending Provider [phone] Malys, Mary Jo Primary Care Unavailable Malys, Mary Jo Attending Unavailable Malys, Mary Jo Referring Unavailable Malys, Mary Jo Primary Care Unavailable Malys, Mary Jo Attending Unavailable Malys, Mary Jo Primary Care Unavailable Duglas Lilly NP Attending Unavailable Malys, Mary Jo Referring Unavailable Loyda Oliveira Attending Unavailable Malys, Mary Jo Primary Care Unavailable Malys, Mary Jo Referring Unavailable Malys, Mary Jo Primary Care Unavailable Wen Alexander Consulting Unavailable Benjamin, Wen Attending Unavailable Malys, Mary Jo Referring Unavailable Malys, Mary Jo Primary Care Unavailable Wen Alexander Attending Unavailable Medications Current Medications Medication Drug Class(es) Dates Sig (Normalized) Sig (Original) amoxicillin 875 mg / clavulanate 125 mg oral tablet (1 source) Penicillin-class Antibacterial Start: 04-19-2025 Amoxicillin-Pot Clavulanate 875-125 mg tablet Active 1 {tbl} PO TWICE A DAY 14 7 0 April 19, 2025 12:00am April 25, 2025 12:00am aspirin 81 mg delayed release oral tablet (5 sources) Platelet Aggregation Inhibitor, Nonsteroidal Anti-inflammatory Drug Start: 01-20-2018 Aspirin (Adult Low Dose Aspirin) 81 mg tablet,delayed release (DR/EC) Active 81 mg PO daily January 20, 2018 12:00am atomoxetine 40 mg oral capsule (2 sources) Norepinephrine Reuptake Inhibitor Start: 10-16-2024 take 1 capsule by mouth once daily Atomoxetine 40 mg capsule Active 40 mg PO DAILY October 16, 2024 1:00am citalopram 40 mg oral tablet (5 sources) Serotonin Reuptake Inhibitor Start: 01-20-2018 take 1 tablet by mouth once daily Citalopram 40 mg tablet Active 40 mg PO DAILY 90 90 0 January 20, 2018 12:00am glipiZIDE 10 mg oral tablet (2 sources) Sulfonylurea Start: 09-15-2024 take 1 tablet by mouth twice daily Glipizide 10 mg tablet Active 10 mg PO TWICE A DAY September 15, 2024 1:00am guanFACINE 2 mg oral tablet (2 sources) Central alpha-2 Adrenergic Agonist Start: 09-15-2024 take 1 tablet by mouth twice daily Guanfacine 2 mg tablet Active 1 mg PO TWICE A DAY September 15, 2024 1:00am lisinopril 20 mg oral tablet (5 sources) Angiotensin Converting Enzyme Inhibitor Start: 01-20-2018 take 1 tablet by mouth once daily Lisinopril 20 mg tablet Active 20 mg PO DAILY 90 90 0 January 20, 2018 12:00am 24 hr metFORMIN hydrochloride 500 mg extended release oral tablet (7 sources) Biguanide Start: 09-15-2024 Metformin 500 mg tablet extended release 24 hr Active 1000 mg PO TWICE A DAY 360 90 0 September 15, 2024 3:53pm Start: 01-20-2018 End: 09-15-2024 take 1 tablet by mouth twice daily Metformin 500 mg tablet extended release 24 hr Discontinued 500 mg PO TWICE A DAY 180 90 0 January 20, 2018 12:00am September 15, 2024 3:55pm multivitamin capsule (3 sources) Start: 01-20-2018 take 1 capsule by mouth once daily multivitamin capsule Active 1 CAP PO daily January 20, 2018 12:00am Multivitamin capsule (2 sources) Start: 01-20-2018 Multivitamin capsule Active 1 NMA PO daily January 20, 2018 12:00am omeprazole 20 mg delayed release oral capsule (5 sources) Proton Pump Inhibitor Start: 10-24-2019 take 1 capsule by mouth once daily Omeprazole 20 MG capsule Active 20 mg PO DAILY October 24, 2019 1:00am pioglitazone 30 mg oral tablet (2 sources) Peroxisome Proliferator Receptor alpha Agonist, Peroxisome Proliferator Receptor gamma Agonist, Thiazolidinedione Start: 09-15-2024 take 1 tablet by mouth once daily Pioglitazone 30 mg tablet Active 30 mg PO daily September 15, 2024 1:00am predniSONE 20 mg oral tablet (1 source) Start: 04-19-2025 take 2 tablets by mouth once daily Prednisone 20 mg tablet Active 40 mg PO daily 10 5 0 April 19, 2025 12:00am April 23, 2025 12:00am simvastatin 40 mg oral tablet (5 sources) HMG-CoA Reductase Inhibitor Start: 01-20-2018 take 1 tablet by mouth once daily Simvastatin 40 mg tablet Active 40 mg PO DAILY 90 90 0 January 20, 2018 12:00am vitamin b12 2 mg oral tablet (5 sources) Vitamin B12 Start: 10-24-2019 take 1 tablet by mouth once daily Cyanocobalamin (Vitamin B-12) 2,000 MCG tablet Active 2000 ug PO DAILY October 24, 2019 1:00am Completed/Discontinued Medications Medication Drug Class(es) Dates Sig (Normalized) Sig (Original) glimepiride 2 mg oral tablet (5 sources) Sulfonylurea Start: 01-20-2018 End: 09-15-2024 take 2 tablets by mouth once daily Glimepiride 2 mg tablet Discontinued 4 mg PO DAILY 90 90 0 January 20, 2018 12:00am September 15, 2024 3:53pm Start: 01-20-2018 take 4 mg by mouth once daily Glimepiride Active 4 MG PO DAILY 90 90 January 20, 2018 12:00am Problems Active Problems Problem Classification Problem Date Documented Da te Episodic/Chronic Abdominal pain (2 sources) Unspecified abdominal pain; Translations: [Unspecified abdominal pain] Onset: 04-16-2025 Episodic Disorders of teeth and jaw (2 sources) Jaw pain; Translations: [Jaw pain] 04-19-2025 Episodic Other and unspecified benign neoplasm (2 sources) History of polyp of colon; Translations: [History of colonic polyps] 10-20-2024 Episodic Other connective tissue disease (1 source) Pain in left leg; Translations: [Pain in left leg] Onset: 04-16-2025 Episodic Other screening for suspected conditions (not mental disorders or infectious disease) (2 sources) Patient encounter status; Translations: [Encounter for screening for malignant neoplasm of colon] 09-15-2024 Episodic Residual codes; unclassified (2 sources) Family history of cancer of colon; Translations: [Family history of malignant neoplasm of digestive organs] 10-20-2024 Episodic Comment on above: Sister age 56 Unclassified (1 source) Low back pain, unspecified; Translations: [Low back pain, unspecified] Onset: 04-16-2025 Unclassified (1 source) Personal history of colon polyps, unspecified; Translations: [Personal history of colon polyps, unspecified] Onset: 10-31-2024 Past or Other Problems Problem Classification Problem Date Documented Da te Episodic/Chronic Residual codes; unclassified (1 source) Family history of malignant neoplasm of digestive organs; Translations: [Family history of malignant neoplasm of digestive organs] Onset: 10-31-2024 Episodic Results Test Name Value Interpretation Reference Range Facility Urgent Care Visit Reporton 0 04-19-2025 Urgent Care Visit Report [facility] [address] , [address] [place] [address] OFFICE VISIT Date of Service: 04/19/25 MR#: [id number] Acct: [id number] Name: JACIDENISSE BALTAZAR Rep #: [id number] : 1955 Provider: NEHEMIAS roberson Age/Sex: 70/M Location: [facility] Status: Signed Intake Vital Signs 10/20/24 07:22 04/19/25 08:15 Height 5 ft 7 in 5 ft 7 in Weight: 254 lb BMI 39.7 BP 156/90 H Blood Pressure Location Lt brachial Position Sitting Pulse 103 H Pulse Source Monitor Temp 98.4 F Temp Source Oral Pulse Oximetry (%) 97 Oxygen Delivery Method room air Intake Visit Reasons: SWOLLEN JAW Chief Complaint: Facial Swelling Accompanied by: Self Allergies No Known Allergies Allergy (Verified 04/19/25 08:22) Medications ???Medication ???Instructions ???Recorded ???Confirmed ???Type aspirin 81 mg tablet,delayed 81 mg PO QDAY 01/20/18 04/19/25 Hi story release (Adult Low Dose Aspirin) citalopram 40 mg tablet 40 mg PO DAILY 90 days ##90 04/19/25 History lisinopril 20 mg tablet 20 mg PO DAILY 90 days ##90 04/19/25 History multivitamin 1 cap PO QDAY 01/20/18 04/19/25 Hi story simvastatin 40 mg tablet 40 mg PO DAILY 90 days ##90 04/19/25 History cyanocobalamin (vitamin B-12) 2,000 mcg PO DAILY 10/24/19 History 2,000 mcg tablet omeprazole 20 mg capsule,delayed 20 mg PO DAILY 10/24/19 04/19/25 H istory release glipizide 10 mg tablet 10 mg PO BID 09/15/24 04/19/25 His tory guanfacine 2 mg tablet 1 mg PO BID 09/15/24 04/19/25 Hist ory metformin 500 mg tablet,extended 1,000 mg PO BID 90 days #360 tabs 09/15/24 04/19/25 History release 24 hr pioglitazone 30 mg tablet 30 mg PO QDAY 09/15/24 04/19/25 Hi story atomoxetine 40 mg capsule 40 mg PO DAILY 10/16/24 04/19/25 H istory amoxicillin 875 mg-potassium 1 tab PO BID 7 days #14 tabs 04/1904/19/25 Rx clavulanate 125 mg tablet prednisone 20 mg tablet 40 mg (2 x 20 mg) PO QDAY 5 days 0 04/19/25 04/19/25 Rx #10 tabs Have you fallen in the past year?: No Nurse's Note: Left sided facial swelling in the jaw area, painful, hard to swallow, sore inside. X 2 days. [facility] Medical History (Updated 04/19/25 @ 08:53 by Duglas Lilly BIO MEDICAL TECHNICIAN, BIO MEDICAL TECHNICIAN-C) Wears hearing aid Wears glasses Wears partial dentures Wears dentures ADD (attention deficit disorder) Anxiety Arthritis Migraine headache High cholesterol Difficulty swallowing History of hiatal hernia History of diverticulitis Gastric reflux Non-smoker History of echocardiogram History of stress test Leg cramps Personal history of colonic polyps Family history of malignant neoplasm of colon in first degree relative diagnosed when younger than 60 years of age Back pain Neck pain Limb weakness Knee pain Fatigue Diabetes Hemorrhoids Hypertension Surgical History History of esophagogastroduodenoscopy (EGD) History of surgery History of carpal tunnel release of both wrists History of umbilical hernia repair History of arthroscopic knee surgery History of sinus surgery Hx of colonoscopy Family History Sister Colon cancer, Onset Age: 56 Social History household members: spouse current occupational status: retired Smoking Status: Never smoker substance use type: does not use HPI HPI Chief Complaint: Facial Swelling Details: DENISSE BEATTY, is a 70 M who presents to the office today for concerns regarding left-sided facial swelling near his jawline. He states this is painful and difficult to swallow. He feels that his throat is sore. This been ongoing for 2 days. ROS Const Constitutional: No body ache, chills, fatigue, fever(s), headache(s) or change in appetite Eyes Eyes: No blurry vision, change in vision, double vision, irritation, discharge, vision loss, dry eyes, bulging eyes, floaters, visual disturbances, eye pain, Light sensitivity, spots in vision, tunnel vision or other ENT ENT: Positive for neck pain, sore throat and other (left jaw pain); No ear or mastoid pain, ear discharge, ear pressure, tinnitus, dizziness/vertigo, nosebleed/epistaxis, nasal congestion, nose pain, sinus pressure, sinus pain, nasal discharge, post nasal drip, headache(s), facial pain, dental pain, difficulty swallowing, bad breath, hoarseness, lip swelling, mouth lesions, mouth pain, tongue swelling or throat swelling Resp Respiratory: No cough, change in phlegm color, chest congestion, hemoptysis, pain on inspiration, shortness of breath, pain with cough, stridor or wheezing Cardio Cardiology: No chest pain at rest, chest pain with (more content not included)... Normal [facility] L/S Spine Min 4 Views03-21 L/S Spine Min 4 Views [facility] [address] [place] [address] L/S Spine Min 4 Views MR#: [id number] Acct: [id number] Name: DENISSE BEATTY Rep #: [id number] : 1955 M 70 From: Armando Machado MD PCP: Dr. Mary Jo Wilcox, DO Status: REG CLI Study: L/S Spine Min 4 Views Date of Exam: 04/16/25 Exam# [id number] Ordering Dr: Mary Jo Wilcox DO EXAM: XR Lumbosacral Spine, 4 or 5 Views CLINICAL INDICATION: RIGHT SIDE PAIN RIGHT BACK PAIN LEFT LEG PAIN TECHNIQUE: Frontal, lateral and bilateral oblique views of the lumbar spine. COMPARISON: No relevant prior studies available. FINDINGS: VERTEBRAE: Degenerative facet arthropathy throughout the lumbar spine, most prominent in the lower lumbar spine. Moderate facet arthropathy of L3-S1. No acute fracture. Normal alignment. SACRUM/COCCYX: Unremarkable as visualized. No acute fracture. DISC SPACES: Degenerative disc disease throughout the lumbar spine. SOFT TISSUES: Unremarkable. GASTROINTESTINAL TRACT: Fecal retention in the colon consistent with constipation. RAD/L/S Spine Min 4 Views IMPRESSION: 1. Fecal retention in the colon consistent with constipation. 2. If symptoms persist, further evaluation with MRI is recommended. 3. Degenerative changes lumbar spine as described. Reading Location: [facility] CC: Dr. Mary Jo Wilcox DO Bagger Meat: Signed Normal [facility] Thoracic Spine 3 Viewson Thoracic Spine 3 Views [facility] [address] [place] [address] Thoracic Spine 3 Views MR#: [id number] Acct: [id number] Name: DENISSE BEATTY Rep #: [id number] : 1955 M 70 From: Armando Machado MD PCP: Dr. Mary Jo Wilcox DO Status: REG CLI Study: Thoracic Spine 3 Views Date of Exam: 04/16/25 Exam# [id number] Ordering Dr: Mary Jo Wilcox DO EXAM: XR Thoracic Spine, 3 Views CLINICAL INDICATION: RIGHT SIDE PAIN RIGHT BACK PAIN LEFT LEG PAIN TECHNIQUE: Frontal, lateral and swimmer's views of the thoracic spine. COMPARISON: No relevant prior studies available. FINDINGS: VERTEBRAE: Degenerative disc disease and facet arthropathy throughout the thoracic spine. Normal alignment. No acute fracture. DISC SPACES: See above. SOFT TISSUES: Unremarkable. RAD/Thoracic Spine 3 Views IMPRESSION: 1. No acute fracture. 2. Degenerative changes thoracic spine as described. 3. If symptoms persist, further evaluation with MRI is recommended. Reading Location: [facility] CC: Dr. Mary Jo Wilcox, Bagger Meat: Signed Normal [facility] Anion gap in Serum or Plasma Ordered By: Mary Jo Wilcox on 04-13-2025 Anion gap [Moles/Vol] 15 mmol/L 5-15 [facility] BUN/creatinine ratioOrdered By: Mary Jo Wilcox on 04-13-2025 Urea nitrogen/Creatinine [Mass ratio] 16.3 mg/mg 10-20 [facility] Bilirubin Test strip Ql (U)O rdered By: Mary Jo Wilcox on 04-13-2025 Bilirubin Ql (U) Negative Negative [facility] Bilirubin, totalOrdered By: Mary Jo Wilcox on 04-13-2025 Bilirubin [Mass/Vol] 0.63 mg/dL 0.00-1.30 [facility] Carbon dioxide, total [Moles /volume] in Central venous bloodOrdered By: Mary Jo Wilcox on 04-13-2025 CO2 [Moles/Vol] 23.4 mmol/L 21.0-32.0 [facility] Chloride assayOrdered By: Susan Wilcox on 04-13-2025 Chloride [Moles/Vol] 104 mmol/L 98-108 [facility] Comprehensive Metabolic Prof ilon 04-13-2025 Albumin [Mass/Vol] 4.4 g/dL Normal 3.4-4.8 [facility] Comment on above: Performed By: #### [id number], [id number] #### [facility] Laboratory [address] [facility] [address] Albumin/Globulin [Mass ratio] 1.7 {ratio} Normal 0.9-2.4 [facility] Comment on above: Performed By: #### L [id number], [id number] #### [facility] [address] [place], [address] ALK PHOS 58 U/L Normal 40-129 [facility] Comment on above: Performed By: #### [id number], [id number] #### [facility] [address], [address] ALT [Catalytic activity/Vol] 46 U/L Normal <=46 [facility] Comment on above: Performed By: #### [id number], [id number] #### [facility] [address] [place], [address] AST [Catalytic activity/Vol] 31 U/L Normal <=37 [facility] Comment on above: Performed By: #### [id number], [id number] #### [facility] [address] [place], [address] Bilirubin [Mass/Vol] 0.63 mg/dL Normal 0.00-1.30 [facility] Comment on above: Performed By: #### [id number], [id number] #### [facility] [address] [place], [address] BUN/CRE 16.3 RATIO Normal 10-20 [facility] Comment on above: Performed By: #### [id number], [id number] #### [facility] [address] [place], [address] Calcium [Mass/Vol] 9.9 mg/dL Normal 7.6-11.0 [facility] Comment on above: Performed By: #### [id number], [id number] #### [facility] [address] [place], [address] Chloride [Moles/Vol] 104 mmol/L Normal 98-108 [facility] Comment on above: Performed By: #### L [id number], [id number] #### [facility] [address] [place], [address] CO2 [Moles/Vol] 23.4 mmol/L Normal 21.0-32.0 [facility] Comment on above: Performed By: #### [id number], [id number] #### [facility] [address] [place], [address] Creatinine [Mass/Vol] 1.04 mg/dL Normal 0.70-1.20 [facility] Comment on above: Performed By: #### [id number], [id number] #### [facility] [address] [place], [address] GAP 15 Normal 5-15 [facility] Comment on above: Performed By: #### L [id number], [id number] #### [facility] [address] [place], [address] GFR/1.73 sq M.predicted among non-blacks MDRD (S/P/Bld) [Vol rate/Area] 77 mL/min/{1.73_m2} Normal >60 [facility] Comment on above: Result Comment: mL/m in/1.73m2 CKD-EPI Creatinine Equation (2020) Performed By: #### L [id number], [id number] #### [facility] [address] [place], [address] Globulin (S) [Mass/Vol] 2.6 g/dL Normal 2.2-4.2 [facility] Comment on above: Performed By: #### L [id number], [id number] #### [facility] [address] [place], [address] Glucose [Mass/Vol] 125 mg/dL High 70-99 [facility] Comment on above: Performed By: #### [id number], [id number] #### [facility] [address] [place], [address] Potassium [Moles/Vol] 4.2 mmol/L Normal 3.3-5.1 [facility] Comment on above: Performed By: #### [id number], [id number] #### [facility] [address] [place], [address] Sodium [Moles/Vol] 143 mmol/L Normal 133-145 [facility] Comment on above: Performed By: #### [id number], [id number] #### [facility] [address] [place], [address] T PROT 6.9 g/dL Normal 5.9-8.4 [facility] Comment on above: Performed By: #### L [id number], [id number] #### [facility] [address] [place], [address] Urea nitrogen [Mass/Vol] 17 mg/dL Normal 4-19 [facility] Comment on above: Performed By: #### L [id number], [id number] #### [facility] [address] [place], [address] Glomerular filtration rate ( GFR) estimation/1.73 sq m using serum, plasma, or whole bOrdered By: Mary Jo Wilcox on 04-13-2025 GFR/1.73 sq M.predicted among non-blacks MDRD (S/P/Bld) [Vol rate/Area] 77 mL/min/{1.73_m2} >60 [facility] Comment on above: mL/min/1.73m2 CKD-EP I Creatinine Equation (2020) Ketones Test strip Ql (U)Ord ered By: Mary Jo Wilcox on 04-13-2025 Ketones Ql (U) Negative Negative [facility] Laboratory - Chemistry and C hemistry - challengeOrdered By: Mary Jo Wilcox on 04-13-2025 AST [Catalytic activity/Vol] 31 U/L <38 [facility] Microscopic analysis of urin e for red blood cells (RBC)Ordered By: Mary Jo Wilcox on 04-13-2025 Microscopic analysis of urine for red blood cells (RBC) 0-5 SEEN /hpf 0-5 [facility] Mucus LM Ql (Urine sed)Order ed By: Mary Jo Wilcox on 04-13-2025 Mucus Ql (Urine sed) 0 SEEN /hpf [facility] Nitrite Test strip Ql (U)Ord ered By: Mary Jo Wilcox on 04-13-2025 Nitrite Ql (U) Negative Negative [facility] Potassium measurement (mass/ volume)Ordered By: Mary Jo Wilcox on 04-13-2025 Potassium (Unsp spec) [Mass/Vol] 4.2 mmol/L 3.3-5.1 [facility] Protein Test strip Ql (U)Ord ered By: Mary Jo Wilcox on 04-13-2025 Protein Ql (U) 30 mg/dl High Negative [facility] Serum creatinine measurement (mass/volume)Ordered By: Mary Jo Wilcox on 04-13-2025 Creatinine [Mass/Vol] 1.04 mg/dL 0.70-1.20 [facility] Serum globulin measurementOr dered By: Mary Jo Wilcox on 04-13-2025 Globulin (S) [Mass/Vol] 2.6 g/dL 2.2-4.2 [facility] Serum glucose measurement (m ass/volume)Ordered By: Mary Jo Wilcox on 04-13-2025 Glucose [Mass/Vol] 125 mg/dL High 70-99 [facility] Serum or plasma alanine melchor otransferase (ALT) measurementOrdered By: Mary Jo Wilcox on 04-13-2025 ALT [Catalytic activity/Vol] 46 U/L <47 [facility] Serum or plasma albumin darian urement (mass/volume)Ordered By: Mary Jo Wilcox on 04-13-2025 Albumin [Mass/Vol] 4.4 g/dL 3.4-4.8 [facility] Serum or plasma albumin/glob ulin mass ratioOrdered By: Mary Jo Wilcox on 04-13-2025 Albumin/Globulin [Mass ratio] 1.7 {ratio} 0.9-2.4 [facility] Serum or plasma alkaline emily sphatase measurementOrdered By: Mary Jo Wilcox on 04-13-2025 ALP [Catalytic activity/Vol] 58 U/L 40-129 [facility] Serum or plasma calcium darian urement (mass/volume)Ordered By: Mary Jo Wilcox on 04-13-2025 Calcium [Mass/Vol] 9.9 mg/dL 7.6-11.0 [facility] Serum or plasma urea nitroge n measurement (mass/volume)Ordered By: Mary Jo Wilcox on 04-13-2025 Urea nitrogen [Mass/Vol] 17 mg/dL 4-19 [facility] Sodium levelOrdered By: Mary Jo Wilcox on 04-13-2025 Sodium [Moles/Vol] 143 mmol/L 133-145 [facility] Squamous epithelial cells de tection in urine sediment by light microscopyOrdered By: Mary Jo Wilcox on 04-13-2025 Epithelial cells.squamous LM Ql (Urine sed) 0-5 SEEN /hpf 0-5 [facility] Total proteinOrdered By: Pepper Wilcox on 04-13-2025 Protein [Mass/Vol] 6.9 g/dL 5.9-8.4 [facility] Urinalysis, Completeon 04-13 EPI,SQUAMOUS 0-5 SEEN Normal 0-5 [facility] Comment on above: Order Comment: CLEAN CATCH Performed By: #### [id number], [id number] #### [facility] [address] [place] [address] RBC 0-5 SEEN Normal 0-5 [facility] Comment on above: Order Comment: CLEAN CATCH Performed By: #### L [id number], [id number] #### [facility] [address] [facility] [address] WBC 5-10 SEEN Normal 0-5 [facility] Comment on above: Order Comment: CLEAN CATCH Performed By: #### L [id number], [id number] #### [facility] [address] [place] [address] BACTERIA 0 SEEN Normal None Seen [facility] Comment on above: Order Comment: CLEAN CATCH Performed By: #### [id number], [id number] #### [facility] [address] [facility] [address] Mucus Ql (Urine sed) 0 SEEN Normal [facility] Comment on above: Order Comment: CLEAN CATCH Performed By: #### [id number], [id number] #### [facility] [address] [place], [place], [address] Urine clarityOrdered By: Pepper Wilcox on 04-13-2025 Clarity (U) Clear Clear [facility] Urine color determinationOrd ered By: Mary Jo Wilcox on 04-13-2025 Color (U) Yellow Yellow [facility] Urine glucose detectionOrder ed By: Mary Jo Wilcox on 04-13-2025 Glucose Ql (U) Normal mg/dl Normal [facility] Urine leukocyte esterase det ection by dipstickOrdered By: Mary Jo Wilcox on 04-13-2025 Leukocyte esterase Test strip Ql (U) 25 /ul High Negative [facility] Urine pHOrdered By: Mary Jo carrington on 04-13-2025 pH (U) 6.0 [pH] 5.0 - 8.0 [facility] Urine sediment bacteria coun t by microscopy (number/high power field)Ordered By: Mary Jo Wilcox on 04-13-2025 Bacteria LM.HPF (Urine sed) [#/Area] 0 /[HPF] None Seen [facility] Urine specific gravity measu rementOrdered By: Mary Jo Renaldozeb on 04-13-2025 Specific gravity (U) [Rel density] 1.015 1.002-1.03 0 [facility] Urine urobilinogen measureme ntOrdered By: Mary Jo Wilcox on 04-13-2025 Urobilinogen Ql (U) Normal mg/dl Normal [facility] White blood cell countOrdere d By: Mary Jo Wilcox on 04-13-2025 White blood cell count 5-10 SEEN /hpf 0-5 [facility] Bedside Glucoseon 10-20-2024 FINGERSTICK GLU 189 mg/dL High 74-106 [facility] Comment on above: Result Comment: DAVID GEMENT OF PATIENT CARE PER NURSING PROTOCOL Performed By: #### L 501.080 #### [facility] Laboratory [address] [place], [place], [id number] Colonoscopy Reporton 025 Colonoscopy Report [facility] Medical Records Department [address] [place] [address] Colonoscopy Report MR#: [id number] Acct: [id number] Name: DENISSE BEATTY Rep #: [id number] : 1955 69 From: Wen Alexander MD PCP: Dr. Mary Jo Wilcox, DO Status:REG [facility] Patient Name: Denisse Beatty Procedure Date: 10/20/2024 7:53 AM Date of : 1955 Age: 69 Procedure: Colonoscopy Indications: Screening in patient at increased risk: Family history of 1st-degree relative with colorectal cancer before age 60 years Providers: Wen Alexander MD Referring MD: Mar yJo Wilcox Medicines: Monitored Anesthesia Care Patient Profile: This is a 69 year old male. Last Colonoscopy: October 2019. Complications: No immediate complications. Procedure: Pre-Anesthesia Assessment: - Prior to the procedure, a History and Physical was performed, and patient medications and allergies were reviewed. The patient's tolerance of previous anesthesia was also reviewed. The risks and benefits of the procedure and the sedation options and risks were discussed with the patient. All questions were answered, and informed consent was obtained. Prior Anticoagulants: The patient has taken no anticoagulant or antiplatelet agents. ASA Grade Assessment: Per anesthesia. After reviewing the risks and benefits, the patient was deemed in satisfactory condition to undergo the procedure. After I obtained informed consent, the scope was passed under direct vision. Throughout the procedure, the patient's blood pressure, pulse, and oxygen saturations were monitored continuously. The Colonoscope was introduced through the anus and advanced to the cecum, identified by appendiceal orifice and ileocecal valve. The colonoscopy was performed without difficulty. The patient tolerated the procedure well. The quality of the bowel preparation was good. Scope In: 8:13:31 AM Scope Withdrawal Time 0 hours 11 minutes 34 seconds Scope Out: 8:29:32 AM Total Procedure Duration Time 0 hours 16 minutes 1 second Findings: The perianal and digital rectal examinations were normal. The entire examined colon appeared normal on direct and retroflexion views. Impression: - The entire examined colon is normal on direct and retroflexion views. - No specimens collected. Recommendation: - Discharge patient to home. - Resume previous diet. - Continue present medications. - Repeat colonoscopy in 5 years for surveillance. Procedure Code(s): --- Professional --- G0105, PT, Colorectal cancer screening; colonoscopy on individual at high risk Diagnosis Code(s): --- Professional --- Z80.0, Family history of malignant neoplasm of digestive organs CPT copyright 2021 [employer]. All rights reserved. The codes documented in this report are preliminary and upon court abstractor review may be revised to meet current compliance requirements. MD Wen Mccoy MD 10/20/2024 8:37:05 AM This report has been signed electronically. Number of Addenda: 0 Note Initiated On: 10/20/2024 7:53 AM 10/20/24836 Date Wen Gale Signature: Date (if indicated) CC: Dr. Mary Jo Wilcox DO; Dr. Wen Alexander MD Date Dictated: 10/20/24 0753 Date Transcribed: Bagger Meat: [place] [facility] MR/POSTOP.[facility] 10-20-2024 MR/POSTOP.[facility] Medical Records Department [address] [place] [address] Anesthesia Postop Eval I 10/20/24836 MR#: [id number] Acct: [id number] Name: JACIDENISSE DELANEY Rep #: [id number] : 1955 69 From: Henrry Stephens PCP: Dr. Mary Jo Wilcox DO Status:REG SDC Y Race: C Location: [place] [address] Anesthesia: Postop Eval I Current Vital Signs Temperature: 98.2 F Pulse Rate: 101 Blood Pressure: 116/94 Respiratory Rate: 16 Pulse Ox: 94 Oxygen Delivery Method: Room Air Assessment Airway patent: Yes Spontaneous unlabored respirations: Yes Mental status: Asleep nausea: No Vomiting: No Anesthesia Complication: No Fluid Hydration Crystalloid volume administer (ml): 55 Total IV fluid infused: 55 Progress Note Anesthesia document: Postop Eval 1 completed: Yes 10/20/24837 Date Henrry Gale Signature: Date CC: Signed Normal [facility] [id number] 10-20-2024 MR/POSTOPAN2 [facility] Medical Records Department [address] [place] [address] Anesthesia Postop Eval II 10/20/24 1040 MR#: [id number] Acct: [id number] Name: DNEISSE BEATTY Rep #: [id number] : 1955 69 From: Isacc Mobley MD PCP: Dr. Mary Jo Wilcox, DO Status:[facility] Y Race: C Location: [place] Anesthesia Postop Eval I Sum Postop Eval Completion status Anesthesia document: Postop Eval 1 completed: Yes Anesthesia Postop Eval I Summary Anesthesia Postop Eval I Summary: Anesthesia Postop Eval I: Assessment Summary Airway patent Yes 10/20/24 08:38 [email or web address] Spontaneous unlabored Yes 10/20/24 08:38 [email or web address] respirations Mental status Asleep 10/20/24 08:38 [email or web address] nausea No 10/20/24 08:38 [email or web address] Vomiting No 10/20/24 08:38 [email or web address] Anesthesia Postop Eval I: Fluid Summary Crystalloid volume administer 55 10/20/24 08:38 [email or web address] (ml) Colloids volume administered ( ml) Blood Product volume administered (ml) Total IV fluid infused 55 10/20/24 08:38 [email or web address] Anesthesia Postop Eval I: Summary Notes Anesthesia Complication No 10/20/24 08:38 [email or web address] Anesthesia Complication Comment: Post-operative progress note Anesthesia: Postop Eval II Evaluation Mental status: Awake Pain Level: 0 nausea: No Vomiting: No 10/20/24 1040 Date Isacc Gale Signature: Date CC: Signed Normal [facility] Absolute lymphocyte countOrd ered By: Mary Jo Wilcox on 03-23-2023 Lymphocytes Auto (Unsp spec) [#/Vol] 2.24 10*3/uL 0.83-4.51 [facility] Basophil percentageOrdered B y: Mary Jo Wilcox on 03-23-2023 Basophils/100 WBC (Bld) 0.7 % 0-1 [facility] Bilirubin [Mass/Vol] 0.80 mg/dL 0.20-1.00 [facility] Comment on above: For patients on eltr ombopag therapy, use of Dimension [place] TBIL is not recommended. Chloride [Moles/Vol] 108 mmol/L 98-107 [facility] Cholesterol [Mass/Vol] 122 mg/dL <200 [facility] Comment on above: <200 mg/dL Desirable 200-240 mg/dL Borderline >240 mg/dL High Risk Eosinophils/100 WBC (Bld) 4.0 % 0-5 [facility] Glucose [Mass/Vol] 147 mg/dL 74-106 [facility] Comment on above: Fasting Glucose resu lt greater than or equal to 126 mg/dL suggests DIABETES MELLITUS per A.D.A. criteria. Neutrophils (Bld) [#/Vol] 2.6 10*3/uL 2.0-7.7 [facility] Neutrophils/100 WBC (Bld) 45.9 % 47-70 [facility] Potassium [Moles/Vol] 3.9 mmol/L 3.5-5.1 [facility] Protein [Mass/Vol] 7.1 g/dL 6.4-8.2 [facility] Sodium [Moles/Vol] 140 mmol/L 136-145 [facility] Triglyceride [Mass/Vol] 176 mg/dL <199 [facility] Comment on above: The drugs N-Acetylcy steine and Metamizole may falsely depress this assay.Serum Triglycerides Reference Interval Normal <150 mg/dL Borderline high 150 - 199 mg/dL High 200 - 499 mg/dL Very High > or = 500 mg/dL WBC (Bld) [#/Vol] 5.7 10*3/uL 4.4-11.0 [facility] Blood erythrocytes count (nu mber/volume)Ordered By: Mary Jo Wilcox on 03-23-2023 RBC (Bld) [#/Vol] 4.85 10*6/uL 4.6-6.2 [facility] Blood hemoglobin measurement (mass/volume)Ordered By: Mary Jo Wilcox on 03-23-2023 Hemoglobin (Bld) [Mass/Vol] 14.1 g/dL 13.0-16.5 [facility] Blood lymphocytes/100 leukoc ytesOrdered By: Mary Jo Wilcox on 03-23-2023 Lymphocytes/100 WBC (Bld) 39.1 % 19-41 [facility] Blood monocytes/100 leukocyt esOrdered By: Mary Jo Wilcox on 03-23-2023 Monocytes/100 WBC (Bld) 9.6 % 0-10 [facility] Blood platelet mean volumeOr dered By: Mary Jo Wilcox on 03-23-2023 Platelet mean volume (Bld) [Entitic vol] 10.3 fL 6.2-12.0 [facility] Determination of erythrocyte mean corpuscular volume (MCV)Ordered By: Mary Jo Wilcox on 03-23-2023 MCV (RBC) [Entitic vol] 90.3 fL 80-94 [facility] Hematocrit Auto (Bld) [Volum e fraction]Ordered By: Mary Jo Wilcox on 03-23-2023 Hematocrit (Bld) [Volume fraction] 43.8 % 40-54 [facility] Laboratory - Chemistry and C hemistry - challengeOrdered By: Mary Jo Wilcox on 03-23-2023 ALP [Catalytic activity/Vol] 63 U/L 45-117 [facility] ALT [Catalytic activity/Vol] 53 U/L 16-61 [facility] CO2 [Moles/Vol] 27.0 mmol/L 21.0-32.0 [facility] Globulin (S) [Mass/Vol] 3.5 g/dL 2.2-4.2 [facility] Urea nitrogen/Creatinine [Mass ratio] 16.0 mg/mg 10-20 [facility] Laboratory - Hematology and Cell countsOrdered By: Mary Jo Wilcox on 03-23-2023 Erythrocyte distribution width (RBC) [Entitic vol] 43.9 fL 35.1-43.9 [facility] Erythrocyte distribution width (RBC) [Ratio] 13.3 % 11.6-14.6 [facility] Immature granulocytes/100 WBC (Bld) 0.700 % 0.0-0.9 [facility] Comment on above: IG% - Immature Granu locytes (promyelocytes, myelocytes and metamyelocytes) > 1% indicates that a LEFT SHIFT is Present. MCH (RBC) [Entitic mass] 29.1 pg 27.0-32.0 [facility] Nucleated RBC/100 WBC (Bld) [Ratio] 0 % 0-5 [facility] MCHC Auto (RBC) [Mass/Vol]Or dered By: Mary Jo Wilcox on 03-23-2023 MCHC (RBC) [Mass/Vol] 32.2 g/dL 32-36 [facility] No Panel InformationOrdered By: Mary Jo Wilcox on 03-23-2023 Estimated GFR (MDRD) Amer 78 mL/min >60 [facility] Comment on above: GFR Calc Estimated GFR (MDRD) Non-Af Amer 65 mL/min >60 [facility] Comment on above: Non- GFR Calc Prostate Specific Antigen Screen 2.49 ng/mL 0.00-4.00 [facility] Comment on above: This test was perfor med using the TPSA assay method for [facility] chemistry system. Values obtained with differentassay methods cannot be used interchangably.When changing PSA assays in the course of monitoring apatient, additional sequential testing should be carriedout to confirm baseline values. Urine Microalbumin/Creatinin e Ratio 25.6 mg/g CRE <30 [facility] Platelets bldOrdered By: Pepper Wilcox on 03-23-2023 Platelets (Bld) [#/Vol] 219 10*3/uL 150-450 [facility] Serum or plasma albumin darian urement (mass/volume)Ordered By: Mary Jo Wilcox on 03-23-2023 Albumin [Mass/Vol] 3.6 g/dL 3.2-5.0 [facility] Serum or plasma albumin/glob ulin mass ratioOrdered By: Mary Jo Wilcox on 03-23-2023 Albumin/Globulin [Mass ratio] 1.0 {ratio} 0.9-2.4 [facility] Serum or plasma calcium darian urement (mass/volume)Ordered By: Mary Jo Wilcox on 03-23-2023 Calcium [Mass/Vol] 8.8 mg/dL 8.5-10.1 [facility] Serum or plasma cholesterol in HDL measurement (mass/volume)Ordered By: Mary Jo Wilcox on 03-23-2023 Cholesterol in HDL [Mass/Vol] 32 mg/dL >40 [facility] Comment on above: The drugs N-Acetylcy steine and Metamizole may falsely depress this assay. Reference Range HDL <40 mg/dL Low HDL Cholesterol HDL >or= 60 mg/dL High HDL Cholesterol Serum or plasma cholesterol in VLDL measurement (mass/volume)Ordered By: Mary Jo Wilcox on 03-23-2023 Cholesterol in VLDL [Mass/Vol] 35 mg/dL 5-40 [facility] Serum or plasma creatinine m easurement (mass/volume)Ordered By: Mary Jo Wilcox on 03-23-2023 Creatinine [Mass/Vol] 1.19 mg/dL 0.70-1.30 [facility] Comment on above: The validity of the calculated GFR & GFRAA in patients over 70 years has not been determined. Clinical correlation is essential. Serum or plasma low density lipoprotein (LDL) cholesterol measurement (mass/volume)Ordered By: Mary Jo Wilcox on 03-23-2023 Cholesterol in LDL [Mass/Vol] 55 mg/dL 0-130 [facility] Serum or plasma urea nitroge n measurement (mass/volume)Ordered By: Mary Jo Wilcox on 03-23-2023 Urea nitrogen [Mass/Vol] 19 mg/dL 7-18 [facility] Thin prep Papanicolaou smear with manual screeningOrdered By: Mary Jo Wilcox on 03-23-2023 Thin prep Papanicolaou smear with manual screening 33 U/L 15-37 [facility] Thin prep Papanicolaou smear with manual screening 5 5-15 [facility] Thin prep Papanicolaou smear with manual screening 40.7 mg/L NO RANGE EST. [facility] Urine creatinine measurement (mass/volume)Ordered By: Mary Jo Wilcox on 03-23-2023 Creatinine (U) [Mass/Vol] 159.00 mg/dL NO RANGE EST. [facility] Whole blood hemoglobin A1c/t otal hemoglobin ratio (mass fraction)Ordered By: Mary Jo Wilcox on 03-23-2023 HbA1c (Bld) [Mass fraction] 7.6 % 3.8-5.6 [facility] Comment on above: Normal < 5.7 % Predi abetic 5.7 - 6.4 % Diabetic >or= 6.5 % Please note range changes. Vital Signs Date Time Vital Sign Value Performing Clinician Faci lity 04-19-2025 08:15-0400 Body height 170.[address] Mary Jo Wilcox DO Work Phone: [facility] 04-19-2025 08:15-0400 Body mass index (BMI) [Ratio] 39.7 kg/m2 Dr. Mary Jo Wilcox DO Work Phone: [facility] 04-19-2025 08:15-0400 Body temperature 98.4 [degF] Dr. Mary Jo Wilcox DO Work Phone: [facility] 04-19-2025 08:15-0400 Body weight 115.[address] Mary Jo Wilcox DO Work Phone: [facility] 04-19-2025 08:15-0400 Diastolic blood pressure 90 mm[Hg] Dr. Mary Jo Wilcox DO Work Phone: [facility] 04-19-2025 08:15-0400 Heart rate 103 /min Dr. Mary Jo Wilcox DO Work Phone: [facility] 04-19-2025 08:15-0400 SaO2% (BldA) [Mass fraction] 97 % Dr. Mary Jo Wilcox DO Work Phone: [facility] 04-19-2025 08:15-0400 Systolic blood pressure 156 mm[Hg] Dr. Mary Jo Wilcox DO Work Phone: [facility] 12-04-2023 15:05-0400 Body height 172.72 cm [facility] 12-04-2023 15:05-0400 Body weight 111.22 kg [facility] 11-06-2023 12:00-0400 Body height 172.72 cm [facility] 11-06-2023 12:00-0400 Body weight 112.67 kg [facility] Encounters Encounter Date Encounter Type Care Provider Facility Start: 04-19-2025 End: 04-19-2025 Patient encounter procedure [facility] Work Phone: Start: 04-19-2025 End: 04-19-[address] Mary Jo Wilcox DO Work Phone: -[facility] Start: 04-16-[address] Mary Jo Wilcox DO -Radiology [place] Work Phone: Start: 04-16-2025 ambulatory Mary Jo Wilcox Facility:[facility] Start: 04-13-2025 End: 04-13-[address] Mary Jo Wilcox DO Work Phone: -[facility] Start: 04-13-2025 End: 04-13-[address] Mary Jo Wilcox DO -Laboratory [facility] Start: 04-13-2025 End: 04-13-2025 ambulatory Mary Jo Wilcox Facility:[facility] Start: 10-20-2024 End: 10-20-2024 ambulatory Mary Jo Wilcox Facility:[facility] Start: 09-15-2024 ambulatory [facility] Facility:[facility] Start: 12-04-2023 End: 12-18-2023 ambulatory [facility] Work Phone: Start: 12-04-2023 End: 12-18-2023 Discharged Recurring [facility] Work Phone: Start: 11-06-2023 End: 11-18-2023 ambulatory [facility] Work Phone: Start: 11-06-2023 End: 11-18-2023 Discharged Recurring [facility] Work Phone: Start: 03-23-2023 End: 03-23-2023 ambulatory [facility] Work Phone: Start: 03-23-2023 End: 03-23-2023 Patient encounter procedure [facility]Laboratory Work Phone: Procedures Date Procedure Procedure Detail Performing Clinician Start: 04-16-2025 X-ray of lumbosacral spine Dr. Mary Jo Wilcox DO Work Phone: Start: 04-16-2025 X-ray of thoracic sp ine, three views Dr. Mary Jo Wilcox DO Work Phone: Start: 04-13-2025 Urnls dip stick/tabl et reagent auto microscopy Dr. Mary Jo Wilcox DO Work Phone: Immunizations Immunization Date Immunization Notes Care Provider Fa cility 11-19-2020 Covid (Pfizer) [facility] 10-29-2020 Covid (Pfizer) [facility] Payers Date Payer Category Payer Medicare [id number] 2024 Self-pay [id number] 2015 Unknown [id number] Unknown [id number] 2.16.8 [id number] Unknown [id number] 2.16.8 [id number] Unknown [id number] 2.16.8 [id number] Unknown [id number] 2.16.8 [id number] Unknown [id number] 2.16.8 [id number] Unknown [id number] 2.16.8 [id number] Social History Date Type Detail Facility Start: 11-17-2019 Tobacco smoking stat us LAIS Unknown if ever smoked [facility] Start: 10-24-2019 Non-smoker [facility] Start: 1955 Sex Assigned At Male [facility] [place] Start: 10-20-2024 End: 04-19-2025 Tobacco smoking status NHIS Never smoked tobacco (finding) [facility] Progress note 04-19-2025 Note Date & Type Note Facility 04-19-2025 Progress note [facility] Progress note 04-19-2025 Note Date & Type Note Facility 04-19-2025 Progress note Note Date/Time April 19, 2025 8:57am [facility] [address], [address] [place] [address] OFFICE VISIT Date of Service: 04/19/25 MR#: [id number] Acct: [id number] Name: DENISSE BEATTY Rep #: [id number] : 1955 Provider: NEHEMIAS Lilly Age/Sex: 70/M Location: [facility] Status: Signed Intake Vital Signs 10/20/24 07:22 04/19/25 08:15 Height 5 ft 7 in 5 ft 7 in Weight: 254 lb BMI 39.7 BP 156/90 H Blood Pressure Location Lt brachial Position Sitting Pulse 103 H Pulse Source Monitor Temp 98.4 F Temp Source Oral Pulse Oximetry (%) 97 Oxygen Delivery Method room air Intake Visit Reasons: SWOLLEN JAW Chief Complaint: Facial Swelling Accompanied by: Self Allergies No Known Allergies Allergy (Verified 04/19/25 08:22) Medications ?Medication ?Instructions ?Recorded ?Confirmed ?Type aspirin 81 mg tablet,delayed 81 mg PO QDAY 01/20/18 History release (Adult Low Dose Aspirin) citalopram 40 mg tablet 40 mg PO DAILY 90 days ##90 01/20/18 04/19/25 History lisinopril 20 mg tablet 20 mg PO DAILY 90 days ##90 01/20/18 04/19/25 History multivitamin 1 cap PO QDAY 01/20/1804/19 History simvastatin 40 mg tablet 40 mg PO DAILY 90 days ##90 01/20/18 04/19/25 History cyanocobalamin (vitamin B-12) 2,000 mcg PO DAILY 10/2304/19/25 History 2,000 mcg tablet omeprazole 20 mg capsule,delayed 20 mg PO DAILY 04/19/25 History release glipizide 10 mg tablet 10 mg PO BID 09/15/24 History guanfacine 2 mg tablet 1 mg PO BID 09/15/24 5 History metformin 500 mg tablet,extended 1,000 mg PO BID 90 da ys #360 tabs 09/15/24 04/19/25 History release 24 hr pioglitazone 30 mg tablet 30 mg PO QDAY 09/15/2404/19 History atomoxetine 40 mg capsule 40 mg PO DAILY 10/16/2403/22 History amoxicillin 875 mg-potassium 1 tab PO BID 7 days #14 t abs 04/19/25 04/19/25 Rx clavulanate 125 mg tablet prednisone 20 mg tablet 40 mg (2 x 20 mg) PO QDAY 5 days 04/19/25 04/19/25 Rx #10 tabs Have you fallen in the past year?: No Nurse's Note: Left sided facial swelling in the jaw area, painful, hard to swallow, sore inside. X 2 days. PFSH Medical History (Updated 04/19/25 @ 08:53 by Duglas Lilly NP, [employer]) Wears hearing aid Wears glasses Wears partial dentures Wears dentures ADD (attention deficit disorder) Anxiety Arthritis Migraine headache High cholesterol Difficulty swallowing History of hiatal hernia History of diverticulitis Gastric reflux Non-smoker History of echocardiogram History of stress test Leg cramps Personal history of colonic polyps Family history of malignant neoplasm of colon in first degree relative diagnosedwhen younger than 60 years of age Back pain Neck pain Limb weakness Knee pain Fatigue Diabetes Hemorrhoids Hypertension Surgical History History of esophagogastroduodenoscopy (EGD) History of surgery History of carpal tunnel release of both wrists History of umbilical hernia repair History of arthroscopic knee surgery History of sinus surgery Hx of colonoscopy Family History Sister Colon cancer, Onset Age: 56 Social History household members: spouse current occupational status: retired Smoking Status: Never smoker substance use type: does not use HPI HPI Chief Complaint: Facial Swelling Details: DENISSE BEATTY, is a 70 M who presents to the office today for concerns regarding left-sided facial swelling near his jawline. He states this is painful and difficult to swallow. He feels that his throat is sore. This been ongoing for 2 days. ROS Const Constitutional: No body ache, chills, fatigue, fever(s), headache(s) or change in appetite Eyes Eyes: No blurry vision, change in vision, double vision, irritation, discharge, vision loss, dry eyes, bulging eyes, floaters, visual disturbances, eye pain, Light sensitivity, spots in vision, tunnel vision or other ENT ENT: Positive for neck pain, sore throat and other (left jaw pain); No ear or mastoid pain, ear discharge, ear pressure, tinnitus, dizziness/vertigo, nosebleed/epistaxis, nasal congestion, nose pain, sinus pressure, sinus pain, nasal discharge, post nasal drip, headache(s), facial pain, dental pain, difficulty swallowing, bad breath, hoarseness, lip swelling, mouth lesions, mouth pain, tongue swelling or throat swelling Resp Respiratory: No cough, change in phlegm color, chest congestion, hemoptysis, pain on inspiration, shortness of breath, pain with cough, stridor or wheezing Cardio Cardiology: No chest pain at rest, chest pain with exertion, shortness of breath, dyspnea on exertion or lightheadedness Gastro GI: No abdominal pain, change in bowel habits or difficulty swallowing Genitourinary Male: No burning urination or urinary frequency Musc Musculoskeletal: Positive for neck pain; No joint pain Skin Skin: No rash Neuro Neurology: No headache(s) or visual disturbances Psych Psychiatric: No change in appetite Endo Endocrine: Positive for other (left jaw pain); No fatigue Aller/Imm Allergy/Immunologic: No lip swelling, throat swelling, tongue swelling or wheezing Exam Const General: cooperative, healthy appearing, comfortable and no acute distress Orientation: alert, awake and oriented x3 HENMT Head: normal to inspection and normocephalic Ears: hearing grossly normal bilaterally, external ears normal and TM's normal bilaterally Nose: external nose normal, nares normal and no nasal discharge Face and sinus: normal facial exam and sinuses nontender Mouth: oral mucosae normal, lip normal, tongue normal, oropharynx normal and moist mucous membranes Throat: posterior oropharynx normal, tonsils normal, uvula midline and no postnasal drainage Eyes General: appearance normal, both eyes and all related structures Neck Neck: normal visual inspection Carotids: normal carotid upstroke Lymphatic: lymphadenopathy left submandibular soft and tender Chest Chest palpation & inspection: normal inspection of the chest Resp Effort & Inspection: normal respiratory effort, able to speak in complete sentences, symmetric chest movement, no cough and no stridor Auscultation: Bilateral: Clear to Auscultation Cardio Rate: regular rate Rhythm: regular rhythm Heart Sounds: S1 normal, S2 normal and no murmurs GI Inspection: normal to inspection Auscultation: normal bowel sounds Palpation: soft Skin General: no rashes or lesions noted Neuro Speech: speech normal Extrem General: normal to inspection and capillary refill normal Coding Level of Care Code Off vis,new,level 3 Diagnoses Jaw pain R68.84 Assessment and Plan Assessment and Plan (1) Jaw pain: Status: Acute Plan: The etiology is unclear. Will treat inflammation and infection. He has appointment with PCP in the near future to evaluate overall progress. He will watch blood sugars closely with prednisone. Encouraged to get plenty of rest, drink lots of clear liquids, and use Tylenol or Ibuprofen (unless contraindicated) for fever and comfort. Patient also educated on other symptomatic management techniques. To be seen in 7-10 days if no improvement; sooner if worsening of symptoms.? Patient advised of potential red flags and when appropriate to report to the ED.? Patient verbalized understanding and agreement with all the above. Will need heart rate and blood pressure evaluation once he improves. Medications: New amoxicillin-pot clavulanate 875-125 mg 1 TAB PO BID 7 days 14 tabs 0RF prednisone 40 mg (2 x 20 mg) PO QDAY 5 days 10 tabs 0RF Clinical Quality Measures Falls Risk Screening/Assistive Devices Have you fallen in the past year?: No 04/19/25 0857 <Electronically signed by Duglas Carroll BIO MEDICAL TECHNICIAN-C> Date _ Duglas Stephen Roof BIO MEDICAL TECHNICIAN BIO MEDICAL TECHNICIAN-C Cosigner Signature: Date (if applicable) CC: Dr. Mary Jo Wilcox, DO ~ [facility] Work Phone: Clinical Note 10-20-2024 Note Date & Type Note Facility 10-20-2024 Note [facility] Medical Records Department [address] [place] [address] History Physical Exam 10/20/24 0800 MR#: [id number] Acct: [id number] Name: DENISSE BEATTY Rep #: [id number] : 1955 69 From: Wen Alexander MD PCP: Dr. Mary Jo Wilcox, DO Status:[facility] Location: [place] [address] HPI - General General Date of Service: 10/20/24 HPI Narrative DENISSE BEATTY, is a 69 M who presents for screening colonoscopy due to history of colon polyps. Patient last colonoscopy was 10/[address] Gonzales no polyps were found at that time recommend follow-up in 5 years. Patient's sister from colon cancer at age 56. Patient denies any abdominal pain/nausea/vomiting/reflux. Patient has bowel movements daily denies any blood. [facility] Medical History (Updated 10/20/24 @ 08:[address] Wen Alexander MD) Wears hearing aid Wears glasses Wears partial dentures Wears dentures ADD (attention deficit disorder) Anxiety Arthritis Migraine headache High cholesterol Difficulty swallowing History of hiatal hernia History of diverticulitis Gastric reflux Non-smoker History of echocardiogram History of stress test Leg cramps Personal history of colonic polyps Family history of malignant neoplasm of colon in first degree relative diagnosed when younger than 60 years of age Back pain Neck pain Limb weakness Knee pain Fatigue Diabetes Hemorrhoids Hypertension Home Medications ???Medication ???Instructions ???Recorded ???Last Taken ???Type aspirin 81 mg tablet,delayed 81 mg PO QDAY 01/20/18 10/15/24 Hi story release (Adult Low Dose Aspirin) citalopram 40 mg tablet 40 mg PO DAILY 90 days ##90 Unknown History lisinopril 20 mg tablet 20 mg PO DAILY 90 days ##90 10/27/19 History 20 MG multivitamin 1 cap PO QDAY 01/20/18 Unknown His tory simvastatin 40 mg tablet 40 mg PO DAILY 90 days ##90 Unknown History cyanocobalamin (vitamin B-12) 2,000 mcg PO DAILY 10/24/19 Unknow n History 2,000 mcg tablet omeprazole 20 mg capsule,delayed 20 mg PO DAILY 10/24/19 10/20/24 H istory release glipizide 10 mg tablet 10 mg PO BID 09/15/24 Unknown Hist ory guanfacine 2 mg tablet 1 mg PO BID 09/15/24 Unknown Histo ry metformin 500 mg tablet,extended 1,000 mg PO BID 90 days #360 tabs 09/15/24 Unknown History release 24 hr pioglitazone 30 mg tablet 30 mg PO QDAY 09/15/24 Unknown His tory atomoxetine 40 mg capsule 40 mg PO DAILY 10/16/24 Unknown Hi story Allergy/AdvReac Type Severity Reaction Status Date / Time No Known Allergies Allergy Verified 10/20/24 07:21 Family History Sister Colon cancer, Onset Age: 56 Surgical History History of esophagogastroduodenoscopy (EGD) History of surgery History of carpal tunnel release of both wrists History of umbilical hernia repair History of arthroscopic knee surgery History of sinus surgery Hx of colonoscopy Social History household members: spouse current occupational status: retired Smoking Status: Never smoker substance use type: does not use Past Medical/Surgical History Planned Operation Planned Operative Procedure(s): COLONOSCOPY S.O.S: No Previous Hospitalizations/Surgeries HX Hospitalizations: No HX of Surgeries: septoplasty carpal tunnel bilat trigger finger knee scope cscope/egd umbilical hernia Any Problems With Anesthesia: No You/Your Family Experience Fever (Hyperthermia) With Anes: No Cholinesterase deficiency: No Cardiovascular Hx Chest Pain within Last 2 months: No Hx of Irregular Heartbeat and/or Afib: No Hx Heart Attack: No Hx Congestive Heart Failure: No Hx Rheumatic Fever: No Hx Hypertension: Yes (controlled with meds) Hx Internal Defibrillator: No Hx Pacemaker: No Hx Cardiac Catheterization: Yes (2002) Hx Cardiac Surgery/Stents/Etc.: No Hx Stress Test: Yes (2002) Hx Pain in Legs when Walking/Leg Cramps: Yes (occ knee pain) Respiratory Chronic Cough: No HX of Shortness of Breath: Yes (sob with 2 flights of stairs) Hoarseness: No Hx Chronic Obstructive Pulmonary Disease (COPD): No Hx Asthma: No Hx Emphysema: No Hx Sleep Apnea: No Hx Respiratory Tract Infection/Cold (presently): No Do You Snore Loudly (louder than talking or can be heard): Yes Do You Often Feel Tired/ Fatigued/ Sleepy Dring Daytime?: No Has Anyone Observed You Stop Breathing During Sleep?: No Result (for STOP score): Positive Hx Smoking: No Smoking Status: Never smoker Gastrointestinal Controlled With Meds: Yes Hx Gastrointestinal Disorders: No Hx Gastrointestinal Bleed: No Hx Ulcer: No Hx Hiatal Hernia: Yes Difficulty Chewing/Swallowing: No Sp (more content not included)... [facility] Evaluation note Note Date & Type Note Facility Evaluation note No assessment information availa [facility] Work Phone: Evaluation note Note Date & Type Note Facility Evaluation note Diagnosis Onset Date Resolution Jaw pain acute April 19 8:32am [facility] Work Phone: Reason for referral (narrative) Note Date & Type Note Facility Reason for referral (narrative) No reason for referral information available [facility] Work Phone: Advance Directives No Advanced Directives Records Found Advance Directive Response Recorded Date/ Time Living Will No October 24, 2019 1:02pm Power of Permanent Mold Supervisor No October 23 1:02pm Chief Complaint and Reason for Visit Chief Complaint TYPE 2 DM Chief Complaint TYPE 2 DM TYPE 2 DM Chief Complaint Admit Date SWOLLEN JAW April 19, 2025 8: 32am Reason for Visit Admit Date Jaw pain [place] 31st, 2025 8: 32am Family History No Family History Records Found Relationship Condition Age at Onset Recorded Date/T gary sister Malignant neoplasm of colon 56 Summary Purpose Additional Source Comments Care Teams (unrecognized sec tion and content) Team Status: Active Member Role Status Dates Dr. Mary Jo Wilcox DO Family Provider Active Dr. Mary Jo Wilcox DO Primary Care Provider Active Team Status: Inactive Member Role Status Dates Dr. Mary Jo Wilcox DO Primary Care Provider, Attending P ronataliader Active Team Status: Inactive Member Role Status Dates Dr. Mary Jo Wilcox DO Primary Care Provide r, Attending Provider, Referring Provider Active Team Status: Active Member Role/Relationship Status Dates Dr. Mary Jo Wilcox DO Primary Care Provider Active Team Status: Inactive Member Role/Relationship Status Dates Dr. Mary Jo Wilcox DO Primary Care Provider Active Start: April 13, 2025 End: April 13, 2025 Dr. Mary Jo Wilcox DO Attending Provider Active St art: April 13, 2025 End: April 13, 2025 Team Status: Active Member Role/Relationship Status Dates Dr. Mary Jo Wilcox DO Primary Care Provider Active Start: April 16, 2025 Dr. Mary Jo Wilcox DO Attending Provider Active St art: April 16, 2025 Dr. Mary Jo Wilcox DO Referring Provider Active St art: April 16, 2025 Team Status: Inactive Member Role/Relationship Status Dates Dr. Mary Jo Wilcox DO Primary Care Provider Active Start: April 19, 2025 End: April 19, 2025 Dr. Mary Jo Wilcox DO Referring Provider Active St art: April 19, 2025 End: April 19, 2025 Duglas Lilly BIO MEDICAL TECHNICIAN, BIO MEDICAL TECHNICIAN-C Attending Provider Active S tart: April 19, 2025 End: April 19, 2025 Goals (unrecognized section and content) Goals may be documented in a n alternate sectionGoals may be documented in an alternate sectionGoals may be documented in an alternate sectionGoals may be documented in an alternate sectionGoals may be documented in an alternate section (unrecognized sect ion and content) No Status Records Found INFORMATION SOURCE (unrecogn ized section and content) DATE CREATED AUTHOR 04/20/2025 [facility] FOR RECORDS PERTAINING TO PATIENTS WHO ARE OR HAVE BEEN ENROLLED IN A CHEMICAL DEPENDENCY/SUBSTANCEABUSE PROGRAM, SOME INFORMATION MAY BE OMITTED. This clinical summary was aggregated from multiple sources. Caution should be exercised in using it in the provision of clinical care. This summary normalizes information from multiple sources, and as a consequence, information in this document may materially change the coding, format and clinical context of patient data. In addition, data may be omitted in some cases. CLINICAL DECISIONS SHOULD BE BASED ON THE PRIMARY CLINICAL RECORDS. [employer] [facility]. provides no warranty or guarantee of the accuracy or completeness of information in this document.
[2025-04-20 08:46] VITALS: BP 204/104; PULSE 105; RESP 18; TEMP 37.2; O2SAT 95
[2025-04-20 10:00] VITALS: BP 168/72; PULSE 105; RESP 18; TEMP 37.2; O2SAT 95
[2025-04-20 10:08] LABS: Anion Gap 15 (5-15); BUN 15 mg/dL (4-19); BUN/Creat Ratio 14.2 RATIO (10-20); Calcium,Total 9.8 mg/dL (7.6-11.0); Carbon Dioxide 24.3 mmol/L (21.0-32.0); Chloride 100 mmol/L (98-108); Estimated Creatinine Clearance 81.05 ml/min (50-250); Glucose 210 mg/dL (70-99); Potassium 4.2 mmol/L (3.3-5.1)
[2025-04-20 11:00] VITALS: BP 169/72; PULSE 89; RESP 18; TEMP 37.2; O2SAT 98
[2025-04-20 11:12] VITALS: BP 169/100; PULSE 18; RESP 18; TEMP 37.2; O2SAT 100
== END 2025-04-20 11:14 | disposition home or self-care (01) ==
PROVIDERS: Emergency Provider Emergency Medicine; PCP Family Medicine; Visit Provider Emergency Medicine
DX: K11.5 Sialolithiasis (principal); E11.9 Type 2 diabetes mellitus without complications; I10 Essential (primary) hypertension; E78.00 Pure hypercholesterolemia, unspecified; Z79.82 Long term (current) use of aspirin; Z79.84 Long term (current) use of oral hypoglycemic drugs; Z79.899 Other long term (current) drug therapy
CPT/HCPCS: 70491; 80048; 85025; 87651; 96365; 96375; 99283; Q9967; A4216; J0295; J2405

== ENCOUNTER → 2025-05-12 | Outpatient (CLI) | payer MEDICARE, BC, SELFPAY ==
[2025-05-12 10:26] LABS: Hematocrit 41.3 % (40-54); Hemoglobin 13.8 g/dL (13.0-16.5); Immature Granulocytes Count 0.020 X10^3/uL (0.0-0.0); Mean Corp Hgb Conc 33.4 g/dL (32-36); Mean Corpuscular Volume 85.7 fL (80-94); Mean Platelet Vol. 10.1 fl (6.2-12.0); NRBC Flagged by Analyzer 0 % (0-5); Platelet Count 236 K/mm3 (150-450); RBC Distribution Width CV 13.2 % (11.6-14.6); RBC Distribution Width SD 41.2 fl (35.1-43.9); Red Blood Count 4.82 M/mm3 (4.6-6.2); White Blood Count 5.0 K/mm3 (4.4-11.0)
[2025-05-12 10:49] LABS: Microalbumin,Random Urine 32.3 mg/L (<20 mg/L)
[2025-05-12 10:57] LABS: AST(SGOT) 28 U/L (<=37); Alanine Aminotransfer ALT/SGPT 48 U/L (<=46); Albumin, Serum 4.1 g/dL (3.4-4.8); Alkaline Phosphatase 65 U/L (40-129); Anion Gap 13 (5-15); BUN 16 mg/dL (4-19); BUN/Creat Ratio 16.7 RATIO (10-20); Calcium,Total 9.5 mg/dL (7.6-11.0); Carbon Dioxide 21.9 mmol/L (21.0-32.0); Chloride 104 mmol/L (98-108); Cholesterol 136 mg/dL (<=200); Globulin 2.4 g/dL (2.2-4.2); Glucose 142 mg/dL (70-99); Low Density Lipoprotein Calc. 59 mg/dL; PSA,Total - Annual Screen 2.83 ng/mL (0.02-4.00); Potassium 4.1 mmol/L (3.3-5.1); Triglycerides 217 mg/dL; Very Low Density Lipoprotein 43 mg/dL (5-40); cholesterol:hdl ratio screen 4.01
[2025-05-13 14:11] LABS: Creatinine, Urine (random) 189.00 mg/dL (39.00-259.00)
== END | disposition home or self-care (01) ==
LOC: MTLAB 08:07
PROVIDERS: PCP Family Medicine; Referring Provider Family Medicine; Visit Provider Family Medicine
DX: Z12.5 Encounter for screening for malignant neoplasm of prostate (principal); E11.9 Type 2 diabetes mellitus without complications; I10 Essential (primary) hypertension; Z51.81 Encounter for therapeutic drug level monitoring
CPT/HCPCS: 36415; 80053; 80061; 82043; 82570; 83036; 84153; 85025; G0103